=== PATIENT | female | born 1955 | race Caucasian/White ===

== ENCOUNTER 2020-07-09 08:02 | Outpatient (REF) | payer MEDICARE, MEDICAID, SELFPAY ==
--- NOTE | ~2020-07-09 | XR_ITS ---
EXAMINATION: XR PELVIS CLINICAL INFORMATION: Bilateral hip pain COMPARISON: 08/03/2016 TECHNIQUE: AP view of the pelvis. FINDINGS: Moderate to severe bilateral hip arthritis with joint space loss, prominent osteophytes, sclerosis. No fracture or dislocation. Pelvic bones appear intact. Surgical clips projected over the lower abdomen and pelvis. XR/XR pelvis 1-2V IMPRESSION: Moderate to severe bilateral hip joint arthritis.
--- NOTE | ~2020-07-09 | XR_ITS ---
EXAMINATION: BILATERAL KNEE X-RAY CLINICAL INFORMATION: Pain COMPARISON: Previous x-ray November 2016 TECHNIQUE: Standing AP view of both knees and lateral and sunrise view of the right knee FINDINGS: Right: Bone alignment is normal. No fracture or dislocation is seen. There is arthritis at the patellofemoral and femoral tibial joints with joint space narrowing and osteophyte formation. There is a small joint effusion. Standing AP view of the left knee demonstrates arthritis at the femoral tibial joints. XR/XR knee RT 2V IMPRESSION: Arthritis.
--- NOTE | ~2020-07-09 | XR_ITS ---
EXAMINATION: BILATERAL KNEE X-RAY CLINICAL INFORMATION: Pain COMPARISON: Previous x-ray November 2016 TECHNIQUE: Standing AP view of both knees and lateral and sunrise view of the right knee FINDINGS: Right: Bone alignment is normal. No fracture or dislocation is seen. There is arthritis at the patellofemoral and femoral tibial joints with joint space narrowing and osteophyte formation. There is a small joint effusion. Standing AP view of the left knee demonstrates arthritis at the femoral tibial joints. XR/XR knee standing BI IMPRESSION: Arthritis.
== END 2020-07-09 08:03 | disposition home or self-care (01) ==
LOC: HO.HOSX 08:02
PROVIDERS: Visit Provider Orthopaedic Surgery
DX: M89.49 Other hypertrophic osteoarthropathy, multiple sites (principal); M79.7 Fibromyalgia; E66.9 Obesity, unspecified; Z68.31 Body mass index [BMI] 31.0-31.9, adult
CPT/HCPCS: 20610; 72170; 73560; 73565; 99202; J1100

== ENCOUNTER 2022-08-16 12:57 | Emergency (ER) | payer MEDICARE, MEDICAID, SELFPAY ==
--- NOTE | ~2022-08-16 | XR_ITS ---
EXAMINATION: XR CHEST CLINICAL INFORMATION: Shortness of breath. COMPARISON: None available. TECHNIQUE: Frontal view of the chest was obtained. FINDINGS: The lungs are clear. The heart and mediastinal structures are unremarkable as a moderate-sized hiatal hernia. XR/XR chest 1V IMPRESSION: 1. No acute cardiopulmonary process. 2. Moderate hiatal hernia.
--- NOTE | ~2022-08-16 | CT_ITS ---
EXAMINATION: CT ANGIOGRAM OF THE CHEST WITH AND WITHOUT CONTRAST (CT PULMONARY ANGIOGRAM FOR PE) CLINICAL INFORMATION: Reason for Exam tachycardic, sob, hx breast ca, current melanoma COMPARISON: Chest x-ray from today TECHNIQUE: Prior to contrast administration, noncontrast localization images were obtained. Subsequently, multidetector volumetric imaging was performed from the thoracic inlet to below the diaphragms following the administration of 65 mL Omnipaque 350 intravenous contrast. No contrast reaction reported Sagittal, coronal, and MIP oblique sagittal reformatted images were obtained on the CT workstation, uploaded to PACS, and reviewed. This CT examination was performed using dose optimization techniques as appropriate, variously including the following: *Automated exposure control *Adjustment of mA and/or kV according to patient size (this includes techniques or standardized protocols for targeted exams where dose is matched to indication/reason for exam; i.e. extremities or head) *Use of iterative reconstruction technique Total exam dose-length product 332 mGy-cm FINDINGS: QUALITY OF STUDY/CONTRAST BOLUS: Satisfactory. PULMONARY ARTERIES: No pulmonary emboli. THORACIC AORTA: No aneurysm. LUNG: No regions of consolidation bilaterally. PLEURA: No pleural effusion or pneumothorax. MEDIASTINUM: The visualized thyroid gland is unremarkable. Moderate-sized hiatal hernia. No lymphadenopathy is seen. Cardiac size is within normal limits; no pericardial effusion. CORONARY ARTERY CALCIFICATION: None visualized on this study. CHEST WALL/AXILLA: No axillary or internal mammary lymphadenopathy. OSSEOUS STRUCTURES: Degenerative changes are noted in the spine. UPPER ABDOMEN: Cholelithiasis is noted. No reflux of contrast into the hepatic veins to suggest elevated right heart pressures. CT/CT angio chest PE protocol IMPRESSION: 1. No pulmonary embolus identified. 2. Moderate-sized hiatal hernia. 3. Cholelithiasis. VTE: negative.
--- NOTE | 2022-08-16 13:04 | ECG_ITS ---
Test Reason : HEART PALPITATIONS Blood Pressure : / mmHG Vent. Rate : 129 BPM Atrial Rate : 129 BPM P-R Int : 156 ms QRS Dur : 086 ms QT Int : 308 ms P-R-T Axes : 041 014 037 degrees QTc Int : 451 ms Sinus tachycardia Septal infarct , age undetermined Abnormal ECG When compared with ECG of 26-OCT-2004 16:01, Vent. rate has increased BY 69 BPM Nonspecific T wave abnormality now evident in Inferior leads Referred By: Janell Lovelace Electronically Signed By:David Linares
[2022-08-16 13:05] VITALS: BP 148/91; PULSE 134; RESP 24; TEMP 37; O2SAT 98; BMI 30.5
--- NOTE | 2022-08-16 13:05 | ED_ITS ---
HPI - Arrhythmia/Palpitations General Chief Complaint: Arrhythmia/Palpitations Stated Complaint: Heart palpitations Time Seen by Provider: 08/16/22 16:03 Source: patient Mode of arrival: ambulatory Limitations: no limitations History of Present Illness HPI narrative: patient comes to the emergency room complaining of palpitations. patient denies chest pain, no shortness of breath. Patient states that she does have history of anxiety. Patient states that earlier today she was in shopping mall, started experiencing palpitations, feeling a bit shaky, patient started feeling very anxious and then the palpitations got worse. at this moment, patient states that she still feels a bit tachycardic but overall feeling much better. Related Data Home Medications Medication Instructions Recorded Confirmed valacyclovir 1 gram tablet 1,000 mg PO DAILY 01/23/20 09/23/21 (Valtrex) Previous Rx's Medication Instructions Recorded atorvastatin 20 mg tablet 20 mg PO DAILY #90 tabs 01/04/22 hydralazine 50 mg tablet 50 mg PO TID #270 tabs 01/04/22 metoprolol succinate 50 mg 50 mg PO DAILY #90 tabs 01/04/22 tablet,extended release 24 hr hydrochlorothiazide 25 mg tablet 25 mg PO QAM PRN bloating #90 tabs 01/12/22 loratadine 10 mg tablet 10 mg PO DAILY #90 tabs 04/13/22 diclofenac sodium 1 % topical gel 4 g topical QID #3 grams 05/11/22 (Arthritis Pain (diclofenac)) alprazolam 0.5 mg tablet 0.5 mg PO TID 90 days #270 tabs 07/11/22 tramadol 50 mg tablet 50 mg PO DAILY PRN pain 90 days 07/11/22 #90 tabs Allergies Allergy/AdvReac Type Severity Reaction Status Date / Time tetanus toxoid, adsorbed Allergy Intermediate FLU LIKE Verified 08/16/22 13:12 [Tetanus Toxoid,Adsorbed] SYMPTOMS Tetanus Allergy Unknown cold Verified 08/16/22 13:12 duloxetine [Cymbalta] AdvReac Unknown not sure Verified 08/16/22 13:12 Review of Systems Review of Systems: Constitutional : No Weight loss, No Fever, No Chills, No Night Sweats, No Fatigue, No Malaise ENT/Mouth : No Hearing loss, No Ear Pain, No Nasal Congestion, No Sinus Pain, No Hoarseness, No sore throat, No Rhinorrhea, No Swallowing Difficulty Eyes: No Eye Pain, No Swelling, No Redness, No Foreign Body, No Discharge, No Vision Changes Cardiovascular : No Chest Pain, No SOB, No Dyspnea on Exertion, No Orthopnea, No Edema, complaining of palpitations Respiratory : No Cough, No Sputum, No Wheezing, No Smoke Exposure, No Dyspnea Gastrointestinal : No Nausea, No Vomiting, No Diarrhea, No Constipation, No abdominal Pain, No Hematochezia, No Melena Genitourinary : no irregular bleeding, No Dysuria, No Urinary Frequency, No Hematuria, No Urinary Incontinence, No Urgency, No Flank Pain, No Urinary Flow Changes, No Hesitancy Musculoskeletal : No joint pain, No Myalgias, No Joint Swelling Skin : No Skin Lesions, No rash Neuro : No Weakness, No Numbness, No Paresthesias, No Loss of Consciousness, No Dizziness, No Headache Psych : No Anxiety/Panic, No Depression, No SI/HI/AH/VH, No Social Issues, Heme/Lymph: No Bruising, No Bleeding,No Lymphadenopathy Endocrine : No Polyuria, No Polydipsia, No Temperature Intolerance [facility] Past Medical History Medical History Colonoscopy refused Fibromyalgia History of breast cancer Hypercholesterolemia Hypertension Obesity (BMI 30-39.9) Osteoarthritis Raynauds disease Rosacea Varicose veins of anus or rectum Surgical History History of cone biopsy of uterine cervix History of mastectomy History of tubal ligation Hx of breast augmentation Family History Family History Father Angina pectoris Past heart attack Mother Diabetes Stroke CVD (cardiovascular disease) Social History Social History (Updated 07/21/20 @ 11:42 by Disha Edwards [facility]) Housing: Apartment Alcohol intake: current Alcohol intake frequency: holidays/special occasions only Patient Tobacco Use Status: Never used Tobacco e-Cigarette/Vaping Use: Never Used Second Hand Smoke Exposure: No Advance Directives: No Advance Directives Information Provided: Yes service: No Current occupational status: disabled Cognitive needs: No Hearing needs: No Vision needs: Yes Physical Exam Vital Signs: Vital Signs: Last Vital Signs Temp 97.5 F 08/16/22 16:04 Pulse 84 08/16/22 20:18 Resp 18 08/16/22 20:18 BP 153/87 H 08/16/22 18:24 Pulse Ox 98 08/16/22 18:24 O2 Del Method Room Air 08/16/22 18:24 BMI result Body Mass Index 30.5 Const: Other: Appearance: Alert. Oriented X3. No acute distress. Eyes: Pupils equal, round and reactive to light. ENT: Pharynx normal. Neck: Normal inspection. Neck supple. No lymph nodes noted. No crepitus CVS: cardiac in the 110s with regular rhythm, Pulses normal. Normal S1 and S2 Respiratory: No respiratory distress. Breath sounds normal. No Wheezing. No rales Abdomen: Soft and nontender. No rigidity. No distention. Skin: Skin warm and dry. Normal skin color. Normal skin turgor. Extremities: No lower extremity edema. No Lacerations. No Rash Neuro: Oriented X 3. No motor deficit. No sensory deficit. Moving all extremities. No slurred speech. CN 2 through 12 grossly intact Psych: calm, cooperative, a bit anxious Course Course Course Narrative: RME - 66 yo female with history of anxiety, HLD, osteoarthritis, HTN who presents to the ER for evaluation of palpitations that started a couple hours ago after walking into a store. She reports it feels like her heart is racing and she feels lightheaded and shakey. +daily ETOH, had 3 beers yesterday. Denies history of withdrawal. HR 120-130 in triage. Plan: EKG, lab workup. to go to treatment room Medications Administered Discontinued Medications Generic Name Dose Route Start Last Admin Trade Name Derrick PRN Reason Stop Dose Admin Iohexol 100 ml 08/16/22 18:09 08/16/22 18:09 Iohexol 350 Mg/Ml 100 Ml Infus..Btl IV 08/16/22 18:10 65 ml ONCE ONE Administration Medical Decision Making Medical Decision Making [facility] Narrative: - I discussed the lab findings with the patient, no acute findings. - Patient has history of breast cancer and skin cancer, we did a CT scan to rule out pulmonary embolism, which was negative. - CT scan for pulmonary embolism is negative for PE. - Patient's heart rate back to normal. Patient instructed to follow-up with her primary care physician as she may need a Holter monitor evaluation Differential Diagnosis Differential Diagnoses: The differential diagnosis associated with the presentation includes ( sinus tachycardia, anxiety, PE) Lab Data MDM Lab Attestation statement: I reviewed the patient's lab results. 08/16/22 13:19 08/16/22 13:19 Labs: Lab Results 08/16/22 08/16/22 08/16/22 Range/Units 13:19 13:19 13:19 WBC 7.3 (4.8-10.8) X10*3/uL RBC 4.59 (4.20-5.50) X10*6/uL Hgb 15.5 (12.0-16.0) g/dl Hct 45.5 (37.0-47.0) % MCV 99.1 H (80.0-98.0) fL MCH 33.8 H (27.0-33.0) pg MCHC 34.1 (31.0-35.0) g/dl RDW 12.6 (11.0-16.0) % Plt Count 227 (160-400) X10*3/uL MPV 9.3 L (9.4-12.3) fL Immature Gran % (Auto) 0.6 H (0.0-0.4) % Neut % (Auto) 57.2 (45-73) % Lymph % (Auto) 33.5 (20-40) % Payette % (Auto) 5.8 (2-11) % Eos % (Auto) 2.1 (0-4) % Baso % (Auto) 0.8 (0-2) % Lymph # (Auto) 2.4 (1.2-4.9) X10*3/uL Payette # (Auto) 0.4 (0.1-1.2) X10*3/uL Eos # (Auto) 0.2 (0.0-0.4) X10*3/uL Baso # (Auto) 0.1 (0.0-0.2) X10*3/uL Abs Immat Gran (auto) 0.04 H (0.00-0.03) X10*3/uL Absolute Neuts (auto) 4.2 (2.0-8.3) x10*3/uL Absolute Nucleated RBC 0.000 (0.0-0.012) X10*3/uL Nucleated RBC % (auto) 0.0 (0.0-0.2) /100WBC PT (10.0-13.1) SEC INR (0.9-1.1) APTT (26.0-36.4) SEC D-Dimer High Sensitivty NG/ML Sodium 141 (135-145) mmol/L Potassium 3.7 (3.3-5.1) mmol/L Chloride 107 (96-108) mmol/L Carbon Dioxide 21 L (22-29) mmol/L Anion Gap 17 (12-20) BUN 9 (9-16) mg/dL Creatinine 0.83 (0.5-1.4) mg/dL Estim Creat Clear Calc 71.5 Estimated GFR > 60 Random Glucose 139 H (60-115) mg/dL Calcium 9.2 (8.4-10.2) mg/dL Magnesium 1.8 (1.6-2.6) mg/dL Total Bilirubin 0.6 (0.0-1.0) mg/dL Direct Bilirubin 0.2 (0.0-0.5) mg/dL AST 26 (5-31) U/L ALT 27 (0-31) U/L Alkaline Phosphatase 116 (39-117) U/L Troponin I High Sens 3.6 (<3.5-17.0) ng/L B-Natriuretic Peptide (<100) pg/mL Total Protein 7.3 (6.5-8.0) g/dL Albumin 4.4 (3.5-5.0) g/dL Urine Color Urine Appearance Urine pH (5.0-9.0) Ur Specific Hammond (1.005-1.025) Urine Protein (Neg-Trace) mg/dL Urine Glucose (UA) (Negative) mg/dL Urine Ketones (Negative) mg/dL Urine Blood (Negative) Urine Nitrite (Negative) Ur Leukocyte Esterase (Negative) Urine Opiates Screen (Not Detect) Urine Fentanyl Screen (Not Detect) Ur Barbiturates Screen (Not Detect) Ur Phencyclidine Scrn (Not Detect) Ur Amphetamines Screen (Not Detect) U Benzodiazepines Scrn (Not Detect) Urine Cocaine Screen (Not Detect) U Marijuana (THC) Screen (Not Detect) 08/16/22 08/16/22 08/16/22 Range/Units 13:19 17:46 17:46 WBC (4.8-10.8) X10*3/uL RBC (4.20-5.50) X10*6/uL Hgb (12.0-16.0) g/dl Hct (37.0-47.0) % MCV (80.0-98.0) fL MCH (27.0-33.0) pg MCHC (31.0-35.0) g/dl RDW (11.0-16.0) % Plt Count (160-400) X10*3/uL MPV (9.4-12.3) fL Immature Gran % (Auto) (0.0-0.4) % Neut % (Auto) (45-73) % Lymph % (Auto) (20-40) % Payette % (Auto) (2-11) % Eos % (Auto) (0-4) % Baso % (Auto) (0-2) % Lymph # (Auto) (1.2-4.9) X10*3/uL Payette # (Auto) (0.1-1.2) X10*3/uL Eos # (Auto) (0.0-0.4) X10*3/uL Baso # (Auto) (0.0-0.2) X10*3/uL Abs Immat Gran (auto) (0.00-0.03) X10*3/uL Absolute Neuts (auto) (2.0-8.3) x10*3/uL Absolute Nucleated RBC (0.0-0.012) X10*3/uL Nucleated RBC % (auto) (0.0-0.2) /100WBC PT 9.0 L (10.0-13.1) SEC INR 0.8 L (0.9-1.1) APTT 27.8 (26.0-36.4) SEC D-Dimer High Sensitivty 151 NG/ML Sodium (135-145) mmol/L Potassium (3.3-5.1) mmol/L Chloride (96-108) mmol/L Carbon Dioxide (22-29) mmol/L Anion Gap (12-20) BUN (9-16) mg/dL Creatinine (0.5-1.4) mg/dL Estim Creat Clear Calc Estimated GFR Random Glucose (60-115) mg/dL Calcium (8.4-10.2) mg/dL Magnesium (1.6-2.6) mg/dL Total Bilirubin (0.0-1.0) mg/dL Direct Bilirubin (0.0-0.5) mg/dL AST (5-31) U/L ALT (0-31) U/L Alkaline Phosphatase (39-117) U/L Troponin I High Sens (<3.5-17.0) ng/L B-Natriuretic Peptide 39 (<100) pg/mL Total Protein (6.5-8.0) g/dL Albumin (3.5-5.0) g/dL Urine Color Urine Appearance Urine pH (5.0-9.0) Ur Specific Hammond (1.005-1.025) Urine Protein (Neg-Trace) mg/dL Urine Glucose (UA) (Negative) mg/dL Urine Ketones (Negative) mg/dL Urine Blood (Negative) Urine Nitrite (Negative) Ur Leukocyte Esterase (Negative) Urine Opiates Screen (Not Detect) Urine Fentanyl Screen (Not Detect) Ur Barbiturates Screen (Not Detect) Ur Phencyclidine Scrn (Not Detect) Ur Amphetamines Screen (Not Detect) U Benzodiazepines Scrn (Not Detect) Urine Cocaine Screen (Not Detect) U Marijuana (THC) Screen (Not Detect) 08/16/22 08/16/22 Range/Units 19:09 19:09 WBC (4.8-10.8) X10*3/uL RBC (4.20-5.50) X10*6/uL Hgb (12.0-16.0) g/dl Hct (37.0-47.0) % MCV (80.0-98.0) fL MCH (27.0-33.0) pg MCHC (31.0-35.0) g/dl RDW (11.0-16.0) % Plt Count (160-400) X10*3/uL MPV (9.4-12.3) fL Immature Gran % (Auto) (0.0-0.4) % Neut % (Auto) (45-73) % Lymph % (Auto) (20-40) % Payette % (Auto) (2-11) % Eos % (Auto) (0-4) % Baso % (Auto) (0-2) % Lymph # (Auto) (1.2-4.9) X10*3/uL Payette # (Auto) (0.1-1.2) X10*3/uL Eos # (Auto) (0.0-0.4) X10*3/uL Baso # (Auto) (0.0-0.2) X10*3/uL Abs Immat Gran (auto) (0.00-0.03) X10*3/uL Absolute Neuts (auto) (2.0-8.3) x10*3/uL Absolute Nucleated RBC (0.0-0.012) X10*3/uL Nucleated RBC % (auto) (0.0-0.2) /100WBC PT (10.0-13.1) SEC INR (0.9-1.1) APTT (26.0-36.4) SEC D-Dimer High Sensitivty NG/ML Sodium (135-145) mmol/L Potassium (3.3-5.1) mmol/L Chloride (96-108) mmol/L Carbon Dioxide (22-29) mmol/L Anion Gap (12-20) BUN (9-16) mg/dL Creatinine (0.5-1.4) mg/dL Estim Creat Clear Calc Estimated GFR Random Glucose (60-115) mg/dL Calcium (8.4-10.2) mg/dL Magnesium (1.6-2.6) mg/dL Total Bilirubin (0.0-1.0) mg/dL Direct Bilirubin (0.0-0.5) mg/dL AST (5-31) U/L ALT (0-31) U/L Alkaline Phosphatase (39-117) U/L Troponin I High Sens (<3.5-17.0) ng/L B-Natriuretic Peptide (<100) pg/mL Total Protein (6.5-8.0) g/dL Albumin (3.5-5.0) g/dL Urine Color Yellow Urine Appearance Clear Urine pH 5.0 (5.0-9.0) Ur Specific Hammond 1.025 (1.005-1.025) Urine Protein Negative (Neg-Trace) mg/dL Urine Glucose (UA) Negative (Negative) mg/dL Urine Ketones Negative (Negative) mg/dL Urine Blood Negative (Negative) Urine Nitrite Negative (Negative) Ur Leukocyte Esterase Negative (Negative) Urine Opiates Screen Not Detected (Not Detect) Urine Fentanyl Screen Not Detected (Not Detect) Ur Barbiturates Screen Not Detected (Not Detect) Ur Phencyclidine Scrn Not Detected (Not Detect) Ur Amphetamines Screen Not Detected (Not Detect) U Benzodiazepines Scrn Not Detected (Not Detect) Urine Cocaine Screen Not Detected (Not Detect) U Marijuana (THC) Screen Not Detected (Not Detect) Radiology Impression Discussion of test interpretation with radiology: I have reviewed the radiologist's reading. Radiologist Impression: FINDINGS: QUALITY OF STUDY/CONTRAST BOLUS: Satisfactory. PULMONARY ARTERIES: No pulmonary emboli.? THORACIC AORTA: No aneurysm. LUNG: No regions of consolidation bilaterally. PLEURA: No pleural effusion or pneumothorax. MEDIASTINUM: The visualized thyroid gland is unremarkable. Moderate-sized hiatal hernia. No lymphadenopathy is seen. Cardiac size is within normal limits; no pericardial effusion. CORONARY ARTERY CALCIFICATION: None visualized on this study. CHEST WALL/AXILLA: No axillary or internal mammary lymphadenopathy. OSSEOUS STRUCTURES: Degenerative changes are noted in the spine.? UPPER ABDOMEN: Cholelithiasis is noted. No reflux of contrast into the hepatic veins to suggest elevated right heart pressures. CT/CT angio chest PE protocol IMPRESSION: 1.? No pulmonary embolus identified. 2.? Moderate-sized hiatal hernia. 3.? Cholelithiasis. ? VTE: negative. ? Discharge Plan Discharge Clinical Impression: Palpitations Patient Disposition: Home, Self-Care Instructions: Heart Palpitations (ED) Additional Instructions: Please follow-up with your primary care physician tomorrow. If you have any worsening or new symptoms, please return to the emergency room or call 911 Prescriptions: No Action atorvastatin 20 mg tablet 20 mg PO DAILY Qty: 90 3RF hydralazine 50 mg tablet 50 mg PO TID Qty: 270 2RF metoprolol succinate 50 mg tablet extended release 24 hr 50 mg PO DAILY Qty: 90 3RF diclofenac sodium [Arthritis Pain (diclofenac)] 1 % gel 4 g topical QID Qty: 3 2RF Rx Instructions: apply to single knee, ankle, foot; for foot includes sole/toes/top of foot alprazolam 0.5 mg tablet 0.5 mg PO TID 90 Days Qty: 270 1RF tramadol 50 mg tablet 50 mg PO DAILY PRN (Reason: pain) 90 Days Qty: 90 2RF valacyclovir [Valtrex] 1 gram tablet 1,000 mg PO DAILY hydrochlorothiazide 25 mg tablet 25 mg PO QAM PRN (Reason: bloating) Qty: 90 3RF loratadine 10 mg tablet 10 mg PO DAILY Qty: 90 3RF
[2022-08-16 13:25] LABS: MANUAL DIFF FLAG NO
[2022-08-16 13:27] LABS: Basophils Absolute Auto 0.1 X10*3/uL (0.0-0.2); Basophils Percent Auto 0.8 % (0-2); Eosinophils Absolute Auto 0.2 X10*3/uL (0.0-0.4); Eosinophils Percent Auto 2.1 % (0-4); Hematocrit 45.5 % (37.0-47.0); Hemoglobin 15.5 g/dl (12.0-16.0); Imm Gran Abs Auto 0.04 X10*3/uL (0.00-0.03); Imm Gran Pct Auto 0.6 % (0.0-0.4); Lymphocytes Absolute Auto 2.4 X10*3/uL (1.2-4.9); Lymphocytes Percent Auto 33.5 % (20-40); Mean Corpuscular HGB Conc 34.1 g/dl (31.0-35.0); Mean Corpuscular Hemoglobin 33.8 pg (27.0-33.0); Mean Corpuscular Volume 99.1 fL (80.0-98.0); Mean Platelet Volume 9.3 fL (9.4-12.3); Monocytes Absolute Auto 0.4 X10*3/uL (0.1-1.2); Monocytes Percent Auto 5.8 % (2-11); Neutrophils Absolute Auto 4.2 x10*3/uL (2.0-8.3); Neutrophils Percent Auto 57.2 % (45-73); Platelet Count 227 X10*3/uL (160-400); Red Blood Count 4.59 X10*6/uL (4.20-5.50); Red Cell Distribution Width 12.6 % (11.0-16.0); White Blood Count 7.3 X10*3/uL (4.8-10.8)
[2022-08-16 13:41] LABS: Alanine Aminotransferase 27 U/L (0-31); Albumin Level 4.4 g/dL (3.5-5.0); Alkaline Phosphatase 116 U/L (39-117); Anion Gap 17 (12-20); Aspartate Amino Transferase 26 U/L (5-31); Bilirubin Direct 0.2 mg/dL (0.0-0.5); Bilirubin Total 0.6 mg/dL (0.0-1.0); Blood Urea Nitrogen 9 mg/dL (9-16); Calcium 9.2 mg/dL (8.4-10.2); Carbon Dioxide 21 mmol/L (22-29); Chloride 107 mmol/L (96-108); Creatinine Clr Calc Pharmacy 71.5; Estimated Glomerular Filt Rate > 60; Glucose Random 139 mg/dL (60-115); Magnesium 1.8 mg/dL (1.6-2.6); Potassium 3.7 mmol/L (3.3-5.1); Sodium 141 mmol/L (135-145); Total Protein 7.3 g/dL (6.5-8.0)
[2022-08-16 13:46] LABS: B Type Natriuretic Peptide 39 pg/mL (<100)
[2022-08-16 13:47] LABS: Troponin-I High Sensitivity 3.6 ng/L (<3.5-17.0)
[2022-08-16 16:04] VITALS: BP 156/83; PULSE 115; RESP 18; TEMP 36.4; O2SAT 98
[2022-08-16 18:04] LABS: INTERNATIONAL NORM RATIO 0.8 (0.9-1.1)
[2022-08-16 18:07] LABS: D Dimer High Sensitivity 151 NG/ML; Partial Thromboplastin Time 27.8 SEC (26.0-36.4)
[2022-08-16] MEDS: iohexoL 350 MG/ML 100 ML INFUS..BTL IV (18:09)
[2022-08-16 18:24] VITALS: BP 153/87; PULSE 81; RESP 20; O2SAT 98
[2022-08-16 19:17] LABS: Appearance Urine Clear; Color Urine Yellow; Glucose Urine UA Negative (Negative); Leukocyte Esterase Urine Negative (Negative); Nitrite Urine Negative (Negative); Specific Gravity - Urine 1.025 (1.005-1.025); Urine Blood Negative (Negative); Urine Ketones Negative (Negative); Urine Protein Negative (Neg-Trace)
[2022-08-16 19:25] LABS: Amphetamine Screen Urine Not Detected (Not Detect); Barbiturates, Urine Not Detected (Not Detect); Benzodiazepines Screen Urine Not Detected (Not Detect); Cannabinoid Screen Urine Not Detected (Not Detect); Cocaine Screen Urine Not Detected (Not Detect); Fentanyl, urine Not Detected (Not Detect); Opiate Screen Urine Not Detected (Not Detect); Phencyclidine Screen Urine Not Detected (Not Detect)
[2022-08-16 20:18] VITALS: PULSE 84; RESP 18
== END 2022-08-16 21:18 | disposition home or self-care (01) ==
PROVIDERS: Physician Assistant; Emergency Provider Emergency Medicine; PCP Internal Medicine
DX: R00.2 Palpitations (principal); I10 Essential (primary) hypertension; E78.00 Pure hypercholesterolemia, unspecified; F41.9 Anxiety disorder, unspecified; K44.9 Diaphragmatic hernia without obstruction or gangrene; I73.00 Raynaud's syndrome without gangrene; Z85.3 Personal history of malignant neoplasm of breast; Z79.02 Long term (current) use of antithrombotics/antiplatelets; Z79.899 Other long term (current) drug therapy
CPT/HCPCS: 36415; 71045; 71275; 80048; 80076; 80307; 81003; 83735; 83880; 84484; 85025; 85379; 85610; 85730; 93005; 99284; Q9967

== ENCOUNTER 2022-10-20 04:44 | Emergency (ER) | payer MEDICARE, MEDICAID, SELFPAY ==
[2022-10-20 04:58] VITALS: BP 189/80; PULSE 48; RESP 19; TEMP 36.6; O2SAT 99; BMI 30.5
[2022-10-20 05:05] VITALS: BP 189/80; PULSE 48; RESP 19; TEMP 36.6; O2SAT 99
--- NOTE | 2022-10-20 05:06 | PC.NURSE ---
Pt ca&ox4, no signs of distress. Pt denies sob or chest pain. Pts son at bedside. plan of care ongoing.
--- NOTE | 2022-10-20 05:54 | ED.ALLEREA ---
HPI - Allergic Reaction General Chief complaint: Allergic Reaction Stated complaint: possible bee sting/allergic reaction Time Seen by Provider: 10/20/22 05:35 Source: patient and family (Son) Mode of arrival: ambulatory Limitations: no limitations History of Present Illness HPI narrative: 66-year-old female who presents emergency department for evaluation of bee sting to left ring finger with redness and swelling to her hand. Patient states yesterday around 15:00 hours she was stung by an insect underneath the ring of her left ring finger. She states that the pain was immediate and she had swelling of her knuckle (PIP joint). She states she was taking Advil dual action and Benadryl. She states she woke up this morning and had severe pain and her hand with increased redness. She was also not feeling well. She states she was feeling weak and fatigued. She denied fever or chills. She was concerned that she was having severe allergic reactions so she came to the emergency department for evaluation. 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 She also states that her left forearm got scratched by her cat yesterday when she was trying to get the CT of back. Related Data Home Medications Medication Instructions Recorded Confirmed valacyclovir 1 gram tablet 1,000 mg PO DAILY 01/23/20 09/23/21 (Valtrex) Previous Rx's Medication Instructions Recorded atorvastatin 20 mg tablet 20 mg PO DAILY #90 tabs 01/04/22 metoprolol succinate 50 mg 50 mg PO DAILY #90 tabs 01/04/22 tablet,extended release 24 hr hydrochlorothiazide 25 mg tablet 25 mg PO QAM PRN bloating #90 tabs 01/12/22 diclofenac sodium 1 % topical gel 4 g topical QID #3 grams 05/11/22 (Arthritis Pain (diclofenac)) alprazolam 0.5 mg tablet 0.5 mg PO TID 90 days #270 tabs 07/11/22 tramadol 50 mg tablet 50 mg PO DAILY PRN pain 90 days 07/11/22 #90 tabs hydralazine 50 mg tablet 50 mg PO TID #270 tabs 09/30/22 loratadine 10 mg tablet 10 mg PO DAILY #90 tabs 10/11/22 cephalexin 500 mg capsule 500 mg PO TID 7 days #21 caps 10/20/22 prednisone 20 mg tablet 60 mg PO DAILY 5 days #15 tabs 10/20/22 Allergies Allergy/AdvReac Type Severity Reaction Status Date / Time tetanus toxoid, adsorbed Allergy Intermediate FLU LIKE Verified 08/16/22 13:12 [Tetanus Toxoid,Adsorbed] SYMPTOMS Tetanus Allergy Unknown cold Verified 08/16/22 13:12 duloxetine [Cymbalta] AdvReac Unknown not sure Verified 08/16/22 13:12 Review of Systems Review of Systems: Yes all other systems are reviewed and are negative [facility] Past Medical History [facility] Narrative: Social history: She denies tobacco use. She occasionally drinks alcohol. She denies drug use. Medical History Colonoscopy refused Fibromyalgia History of breast cancer Hypercholesterolemia Hypertension Obesity (BMI 30-39.9) Osteoarthritis Raynauds disease Rosacea Varicose veins of anus or rectum Surgical History History of cone biopsy of uterine cervix History of mastectomy History of tubal ligation Hx of breast augmentation Family History Family History Father Angina pectoris Past heart attack Mother Diabetes Stroke CVD (cardiovascular disease) Social History Social History Housing: Apartment Alcohol intake: current Alcohol intake frequency: holidays/special occasions only Patient Tobacco Use Status: Never used Tobacco Smoked in Last 30 Days: No e-Cigarette/Vaping Use: Never Used Second Hand Smoke Exposure: No Advance Directives: No Advance Directives Information Provided: Yes service: No Current occupational status: disabled Cognitive needs: No Hearing needs: No Vision needs: Yes Physical Exam ED Vital Signs: Vital Signs - 24 hr 10/20/22 04:58 10/20/22 05:05 Temperature 97.8 F 97.8 F Pulse Rate 48 L 48 L Respiratory Rate 19 19 Blood Pressure 189/80 H 189/80 H Pulse Oximetry 99 99 Oxygen Delivery Method Room Air Room Air BMI result Body Mass Index 30.5 Vital signs revealed an elevated blood pressure-most likely caused by pain and her essential hypertension, patient also has a low heart rate of 48 Exam: General: Awake, alert in no distress Extremities: The patient has a small puncture wound to the radial aspect of her proximal phalanx of the left ring finger. The PIP joint is swollen, the patient has erythema of the left hand involving the 2nd 3rd and 4th metacarpal area. The erythema is warm to the touch. There is no lymphangitis noted. Medical Decision Making Medical Decision Making MDM Narrative: 66-year-old female who presents emergency department for evaluation of an insect bite to the left ring finger that occurred at 15:00 hours with initial swelling of the PIP joint. Patient woke up this morning with increased pain, erythema to 3rd 4th and 5th metacarpal area with systemic symptoms of feeling fatigued, nausea and weakness. Patient did take Advil dual action and Benadryl prior to coming to emergency department. Patient's vital signs did reveal an elevated blood pressure and low heart rate. The patient's at does have swelling and erythema to her left hand and ring finger. I am concerned the patient may have cellulitis verses a localized reaction to the insect venom. The patient will be treated with Keflex 500 mg 3 times a day for 5 days, Benadryl 25 mg 4 times a day for 3 days and prednisone 60 mg once a day for 5 days. Patient was given printed and verbal instructions and discharged home. Differential Diagnosis Differential Diagnoses: The differential diagnosis associated with the presentation includes Differential diagnosis includes but is not limited to cellulitis, localized reaction to insect venom, anaphylaxis Independent Historian Clinical information obtained from an independent historian. History obtained from or confirmed by: Other (Son) Prescription Management I considered prescription management with: Antibiotic and Other (Prednisone) Chronic Conditions Patient?s care impacted by: Hypertension Discharge Plan Discharge Clinical Impression: Cellulitis of hand, left Insect bite Qualifiers: Encounter type: initial encounter Site of insect bite: finger Patient Disposition: Home, Self-Care Instructions: Cellulitis (ED) Additional Instructions: You either have an infection of your left hand or you have a local reaction to insect venom. I am going to treat you for both of these possibilities. Take Keflex 500 mg pills, 1 pill 3 times a day for 1 week. This is an antibiotic that should help your body fight off the infection. Keep the area of hand elevated to help reduce swelling in the infected area and this helps with the healing process Take prednisone 20 mg pills, 3 pills once a day for 5 days. While you are taking prednisone, do not take any NSAIDs (Motrin, Advil, ibuprofen, Aleve, naproxen). This is an anti-inflammatory medications that should reduce the pain and swelling in your hand from reaction to insect venom Take Benadryl 25 mg 4 times a day for the next 3 days to help reduce the swelling and itchiness in hand. Also take Tylenol( acetaminophen) 325 mg pills, 2 pills every 4 hours as needed for pain or fever. Sign of worsening infection include fever, chills, weakness, increased pain, increased redness, increased swelling or red streaks going away from the area of infection. If you develop any of these symptoms or any other symptoms that are concerning to you, see your doctor immediately or return to the Emergency Department. Follow up with your doctor in 3 days for a recheck Please read the other printed instructions that we printed for you. Please read the other printed instructions. Prescriptions: New cephalexin 500 mg capsule 500 mg PO TID 7 Days Qty: 21 0RF prednisone 20 mg tablet 60 mg PO DAILY 5 Days Qty: 15 0RF No Action atorvastatin 20 mg tablet 20 mg PO DAILY Qty: 90 3RF metoprolol succinate 50 mg tablet extended release 24 hr 50 mg PO DAILY Qty: 90 3RF diclofenac sodium [Arthritis Pain (diclofenac)] 1 % gel 4 g topical QID Qty: 3 2RF Rx Instructions: apply to single knee, ankle, foot; for foot includes sole/toes/top of foot alprazolam 0.5 mg tablet 0.5 mg PO TID 90 Days Qty: 270 1RF tramadol 50 mg tablet 50 mg PO DAILY PRN (Reason: pain) 90 Days Qty: 90 2RF hydralazine 50 mg tablet 50 mg PO TID Qty: 270 2RF loratadine 10 mg tablet 10 mg PO DAILY Qty: 90 3RF valacyclovir [Valtrex] 1 gram tablet 1,000 mg PO DAILY hydrochlorothiazide 25 mg tablet 25 mg PO QAM PRN (Reason: bloating) Qty: 90 3RF
[2022-10-20] MEDS: predniSONE 20 MG TABLET 60 MG PO (06:16)
[2022-10-20] MEDS: cephALEXin 500 MG CAPSULE PO (06:16)
--- NOTE | 2022-10-20 06:21 | PC.NURSE ---
Pt ca&ox4, no signs of distress. Pts son at bedside. Pt medicated per may. plan of care ongoing.
== END 2022-10-20 06:32 | disposition home or self-care (01) ==
PROVIDERS: Emergency Provider Emergency Medicine Emergency Medical Services
DX: L03.114 Cellulitis of left upper limb (principal); Z79.899 Other long term (current) drug therapy
CPT/HCPCS: 99283; 99284

== ENCOUNTER 2022-10-24 13:37 | Outpatient (AMB) | payer MEDICARE, MEDICAID, SELFPAY ==
[2022-10-24 13:48] VITALS: BP 150/88; PULSE 68; O2SAT 97; BMI 31.5
--- NOTE | 2022-10-24 13:48 | AM.OFFVISMDC ---
Intake Vital Signs 10/24/22 13:48 Height 5 ft 6 in Weight 195 lb BMI 31.5 BP 150/88 H Blood Pressure Location Lt brachial Position Sitting Pulse 68 Pulse Source Pulse Oximeter Temp Source Skin Pulse Oximetry (%) 97 Oxygen Delivery Method Room Air Intake Visit Reasons: AWV Intake Note: Patient is here for an Annual Wellness Visit. 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: No Allergies tetanus toxoid, adsorbed [Tetanus Toxoid,Adsorbed] Allergy (Intermediate, Verified 10/24/22 13:49) FLU LIKE SYMPTOMS Tetanus Allergy (Unknown, Verified 10/24/22 13:49) cold duloxetine [Cymbalta] Adverse Reaction (Unknown, Verified 10/24/22 13:49) not sure Medication List - Last Reconciled 10/24/22 by Dada Torres MD alprazolam 0.5 mg PO TID 90 days atorvastatin 20 mg PO DAILY cephalexin 500 mg PO TID 7 days diclofenac sodium 1% (Arthritis Pain (diclofenac)) 4 grams topical QID hydralazine 50 mg PO TID hydrochlorothiazide 25 mg PO QAM PRN loratadine 10 mg PO DAILY metoprolol succinate ER 50 mg PO DAILY prednisone 60 mg (3 x 20 mg) PO DAILY 5 days tramadol 50 mg PO DAILY PRN 90 days valacyclovir (Valtrex) 1,000 mg PO DAILY Fall Risk Assessment Fall risk assessment: No Falls in past year Date Fall Risk Assessed: 10/24/22 HPI AWV HPI Details 67-year-old obese female with hypercholesterolemia, hypertension generalized anxiety disorder osteoarthritis coming in for annual well visit last seen in April 2022. Patient has declined colonoscopy. And recommended mammogram. Patient had an insect bite on left hand and treated as cellulitis with antibiotics. Patient was in the emergency room also in August for palpitations a CT angio was done ruled out for pulmonary embolism but has moderate size hiatal hernia as well as cholelithiasis. at home getting good BP at home and discussed about this. R forehead cancer [facility] laser procedure 09/30/2022 [facility] Medical History Colonoscopy refused Fibromyalgia History of breast cancer Hypercholesterolemia Hypertension Obesity (BMI 30-39.9) Osteoarthritis Raynauds disease Rosacea Varicose veins of anus or rectum Surgical History History of cone biopsy of uterine cervix History of mastectomy History of tubal ligation Hx of breast augmentation Family History Father Angina pectoris Past heart attack Mother Diabetes Stroke CVD (cardiovascular disease) Social History (Updated 10/24/22 @ 14:17 by Dada Torres MD) Housing: Apartment Alcohol intake: current Alcohol intake frequency: holidays/special occasions only Patient Tobacco Use Status: Never used Tobacco e-Cigarette/Vaping Use: Never Used Second Hand Smoke Exposure: No service: No Current occupational status: disabled Cognitive needs: No Hearing needs: No Vision needs: Yes Questionnaire Medicare Wellness Checkup [age] What gender do you identify with?: female During the past 4 weeks, how much have you been bothered by emotional problems such as feeling anxious, depressed, irritable, sad or downhearted, and blue?: quite a bit During the past 4 weeks, has your physical & emotional health limited your social activities with family, friends, neighbors, or groups?: slightly During the past 4 weeks, how much bodily pain have you generally had?: severe pain During the past 4 weeks, was someone available to help you if you needed & wanted help?: yes, quite a bit During the past 4 weeks, what was the hardest physical activity you could do for at least 2 minutes?: light Can you get to places out of walking distance without help? (For eg., can you travel alone on buses, taxis or drive your car?): Yes Can you go shopping for groceries or clothes without someone's help?: Yes Can you prepare your own meals?: Yes Can you do your housework without help?: Yes Because of any health problems, do you need the help of another person with your personal care needs such as eating, bathing, dressing or getting around the house?: No Can you handle your own money without help?: Yes During the past 4 weeks, how would you rate your health in general?: fair During the past 4 weeks how have things been going for you?: good & bad parts about equal Are you having difficulties driving your car?: not applicable, I don't use a car Do you always fasten your seat belt when you are in a car?: yes, usually During past 4 weeks, have you been bothered by the following: never: Falling or dizzy when standing up, Sexual problems?, Trouble eating well? and Problems using the telephone?, sometimes: Teeth or denture problems? and often: Tiredness or fatigue? Have you fallen 2 or more times in the past year?: Yes Are you afraid of falling?: Yes Are you a smoker?: no During the past 4 weeks, how many drinks of wine, beer, or other alcoholic beverages did you have?: 2-5 drinks per week Do you exercise for about 20 minutes 3 or more times a week?: yes, most of the time Have you been given information to help with the following?: yes: Hazards in your house that might hurt you? and yes: Keeping track of your medications? How often do you have trouble taking medicines the way you have been told to take them?: I always take medicine as prescribed How confident are you that you can control & manage most of your health problems?: very confident What is your race?: White PHQ-9 Over the last 2 weeks, how often have you been bothered by any of the following problems? 1. Little interest or pleasure in doing things: not at all 2. Feeling down, depressed, or hopeless: not at all 3. Trouble falling or staying asleep, or sleeping too much: several days 4. Feeling tired or having little energy: several days 5. Poor appetite or overeating: not at all 6. Feeling bad about yourself - or that you are a failure or have let yourself or your family down: not at all 7. Trouble concentrating on things, such as reading the newspaper or watching television: not at all 8. Moving or speaking so slowly that other people could have noticed. Or the opposite - being so fidgety or restless that you have been moving around a lot more than usual: not at all 9. Thoughts that you would be better off or of hurting yourself in some way: not at all Total score: 2 Depression Screening Interpretation: Negative Source: Developed by Drs. Neil Banda, Gloria Yuen, Andrae Farfan and colleagues, with an educational dudley from [employer]. AMITA-7 AMB Questionnaire AMITA-7 Date AMITA - 7 assessed: 04/13/22 Feeling nervous, anxious, or on edge: 1 = Several days Not being able to stop or control worryin = Several days Worrying too much about different things: 1 = Several days Trouble relaxin = Several days Being so restless that it is hard to sit still: 1 = Several days Becoming easily annoyed or irritable: 1 = Several days Feeling afraid as if something awful might happen: 1 = Several days Total AMITA-7 score (0-4 normal; 5-9 mild; 10-14 moderate; 15-21 severe): 7 Source: Developed by Drs. Neil Banda, Gloria Yuen, Andrae Farfan and colleagues, with an educational dudley from [employer]. Thrive Questionnaire Date Thrive assessed: 04/13/22 Review of Systems Const Denies poor appetite and Denies weakness Eyes Denies no additional complaints ENT Reports Normal hearing present Card Denies chest pain, Denies syncope, Denies rapid heart rate and Denies dyspnea Resp Denies cough and Denies dyspnea GI Denies change in stool character, Reports constipation, Denies diarrhea, Denies nausea and Denies vomiting Denies urinary frequency, Denies difficulty voiding and Denies dysuria Neuro Reports Normal hearing present, Denies confusion, Denies syncope and Denies weakness Psych Denies confusion Physical Exam Vital Signs: Last Vital Signs Pulse 68 10/24/22 13:48 BP 150/88 H 10/24/22 13:48 Pulse Ox 97 10/24/22 13:48 Oxygen Delivery Method Room Air 10/24/22 13:48 BMI result Body Mass Index 31.5 Const General: alert and awake; No confusion Orientation/consciousness: No confusion HEENT Head: Yes normocephalic Ears: external ears normal and TM's normal bilaterally Face and sinus: Yes normal facial exam Mouth: moist mucous membranes Throat: Yes tonsils normal Eyes Conjunctivae: conjunctivae normal Pupils: Equal, round and reactive pupils present and Pupil accommodation reflex normal Direct Ophthalmoscopy: normal light reflex Neck Neck: No lymphadenopathy Thyroid: Thyroid normal Chest Chest palpation & inspection: normal inspection of the chest Resp Effort & Inspection: normal respiratory effort and no audible wheezes Auscultation: clear to auscultation bilaterally, no crackles, no wheezes and lung sounds not diminished Cardio Rate: regular rate Rhythm: regular rhythm Peripheral pulses: radial pulses present and dorsalis pedis present GI Palpation (GI): no masses Auscultation: normal bowel sounds and normoactive bowel sounds Rectal Exam - Female: deferred Skin General skin exam: no rashes or lesions noted Rashes: no rashes Neuro General: deep tendon reflexes 2+ bilaterally and No confusion Cranial nerves: Yes Equal, round and reactive pupils present, Yes Midline tongue present, Yes Normal hearing present and Yes Ability to bilaterally elevate shoulders present Cognition (Neuro): normal cognition Gait exam (Neuro): Normal gait present Motor exam (neuro): 5/5 motor strength present throughout Deep tendon reflexes (DTR's): Right brachioradialis reflex intensity grade: 2+, Left brachioradialis reflex intensity grade: 2+, Right patellar reflex intensity grade: 2+ and Left patellar reflex intensity grade: 2+ Extrem General: No edema Assessment & Plan Assessment & Plan (1) Medicare annual wellness visit, initial: Code(s): Z00.00 - Encounter for general adult medical examination without abnormal findings (2) Obesity (BMI 30-39.9): Code(s): E66.9 - Obesity, unspecified Plan: Diet and exercise (3) Hypertension: Code(s): I10 - Essential (primary) hypertension Qualifiers: Hypertension type: essential hypertension Qualified Code(s): I10 - Essential (primary) hypertension Plan: Continue with blood pressure medication. Decrease salt intake and exercise (4) Hypercholesterolemia: Code(s): E78.00 - Pure hypercholesterolemia, unspecified Plan: Avoid fried foods, chicken skin, eggs, butter margarine, pastries and meat. Be it pork or beef they have a lot of cholesterol LDL goal of less than 130 and triglyceride of less than 150 patient was reminded to get the blood work (5) Generalized anxiety disorder: Comment: Service NET. Code(s): F41.1 - Generalized anxiety disorder Plan: Continue with anxiety medication as need (6) Colon cancer screening: Code(s): Z12.11 - Encounter for screening for malignant neoplasm of colon (7) Breast cancer screening by mammogram: Code(s): Z12.31 - Encounter for screening mammogram for malignant neoplasm of breast (8) Age-related osteoporosis without current pathological fracture: Code(s): M81.0 - Age-related osteoporosis without current pathological fracture Orders: Orders MM tomosynthesis screening BI Today Z12.31 - Encounter for screening mammogram for malignant neoplasm of breast XR DEXA axial skeleton Today M81.0 - Age-related osteoporosis without current pathological fracture Referrals Cologuard Test Z12.11 - Encounter for screening for malignant neoplasm of colon Medications: Changed From tramadol 50 mg PO DAILY 90 days PRN 90 tabs 2RF pain M89.49 - Other hypertrophic osteoarthropathy, multiple sites To tramadol 50 mg PO BID 90 days PRN 180 tabs 2RF pain M89.49 - Other hypertrophic osteoarthropathy, multiple sites Quality Reporting (2019) Fall Risk Screening ([facility]) Last assessed Fall Risk: 10/24/22 Fall risk assessment: No Falls in past year Depression/Bipolar (159/160/161/177) PHQ-9: Total score: 2 Coding Level of Care Code Medicare First (G0438) Diagnoses Medicare annual wellness visit, initial Z00.00 Obesity (BMI 30-39.9) E66.9 Hypertension I10 Hypertension type: essential hypertension Hypercholesterolemia E78.00 Generalized anxiety disorder F41.1 Colon cancer screening Z12.11 Breast cancer screening by mammogram Z12.31 Age-related osteoporosis without current pathological fracture M81.0
== END 2022-10-24 14:56 | disposition home or self-care (01) ==
PROVIDERS: Visit Provider Internal Medicine
DX: Z00.00 Encounter for general adult medical examination without abnormal findings (principal); E66.9 Obesity, unspecified; Z68.31 Body mass index [BMI] 31.0-31.9, adult; Z23 Encounter for immunization; I10 Essential (primary) hypertension; E78.00 Pure hypercholesterolemia, unspecified; F41.1 Generalized anxiety disorder; Z12.11 Encounter for screening for malignant neoplasm of colon; Z12.31 Encounter for screening mammogram for malignant neoplasm of breast; M81.0 Age-related osteoporosis without current pathological fracture
CPT/HCPCS: 90471; 90677; G0438; G0439

== ENCOUNTER 2022-11-29 12:10 | Outpatient (REF) | payer MEDICARE, MEDICAID, SELFPAY ==
--- NOTE | ~2022-11-29 | MM_ITS ---
EXAMINATION: BONE DENSITOMETRY CLINICAL INDICATION: Age-related osteoporosis without current pathological fracture. COMPARISON: This is the patient's baseline examination. TECHNIQUE: Using a mSpoke DXA System (software version: 13.1) manufactured by [employer], dual-energy x-ray absorptiometry was performed of the lumbar spine and left hip. The images are of good technical quality. Summary results are attached. FINDINGS: LEFT FEMUR, NECK: BMD 0.966 g/cm2, Z-score 0.7, T-score -0.5, normal. LEFT FEMUR, TOTAL: BMD 0.959 g/cm2, Z-score 0.5, T-score -0.4, normal. AP SPINE L1-L4: BMD 1.577 g/cm2, Z-score 4.3, T-score 3.3, normal. IDENTIFIED RISK FACTORS: Low calcium intake, history of fracture (adult). Early menopause, secondary osteoporosis, thiazide. HISTORY OF FRACTURE: Wrist. Other. MEDICATIONS: None listed. MM/XR DEXA axial skeleton IMPRESSION: 1. DIAGNOSIS: Normal bone density based on the lowest T-score value of -0.5 in the femoral neck applying World Health Organization criteria. 2. 10-YEAR FRACTURE RISK PREDICTION, FRAX: According to the guidelines, FRAX calculation should only be performed on patients in the osteopenia bone density category. Therefore, FRAX was not performed on this patient. 3. Treatment Recommendations: NOF guidelines recommend consideration for treatment in postmenopausal women and men age 50 and older presenting with the following: -A hip or vertebral (clinical or morphometric) fracture. -T-score less than or equal to -2.5 at the femoral neck or spine after appropriate evaluation to exclude secondary causes. -Low bone mass at the hip or spine and a 10-year fracture probability by FRAX of greater than or equal to 3% for hip fracture or greater than or equal to 20% for major osteoporotic fracture based on the [place] adapted WHO algorithm. 4. Other Recommendations: All treatment decisions require clinical judgment and consideration of individual patient factors, including patient preferences, comorbidities, previous drug use, risk factors not captured in the FRAX model (e.g. frailty, falls, vitamin D deficiency, increased bone turnover, interval significant decline in bone density) and possible under or overestimation of fracture risk by FRAX. FUTURE SCAN RECOMMENDATION: People with diagnosed cases of osteoporosis or at high risk for fracture should have regular bone mineral density tests. For patients eligible for Medicare, routine testing is allowed once every 2 years. The testing frequency can be increased to one year for patients who have rapidly progressing disease, those who are receiving or discontinuing medical therapy to restore bone mass, or have additional risk factors.
== END 2022-11-29 12:11 | disposition home or self-care (01) ==
LOC: HO.MAMMO 12:10
PROVIDERS: PCP Internal Medicine; Visit Provider Internal Medicine
DX: Z12.31 Encounter for screening mammogram for malignant neoplasm of breast (principal); Z13.820 Encounter for screening for osteoporosis; Z78.0 Asymptomatic menopausal state; M81.0 Age-related osteoporosis without current pathological fracture
CPT/HCPCS: 77063; 77067; 77080

== ENCOUNTER → 2022-11-29 13:00 | Outpatient (BNV) | payer MEDICARE, MEDICAID, SELFPAY | PROVIDERS: PCP Internal Medicine; Visit Provider Radiology Diagnostic Radiology | DX: Z12.31 Encounter for screening mammogram for malignant neoplasm of breast (principal); Z90.12 Acquired absence of left breast and nipple | CPT/HCPCS: 77063; 77067; 77080 ==

== ENCOUNTER 2023-03-01 09:52 | Outpatient (AMB) | payer MEDICARE, MEDICAID, SELFPAY ==
[2023-03-01 09:55] VITALS: BP 120/90; PULSE 78; O2SAT 99; BMI 29.6
--- NOTE | 2023-03-01 09:55 | A.OFFPC_ITS ---
Vital Signs 03/01/23 09:55 Height 5 ft 6 in Weight 183 lb 4 oz BMI 29.6 BP 120/90 H Blood Pressure Location Lt brachial Position Sitting Pulse 78 Pulse Source Pulse Oximeter Pulse Oximetry (%) 99 Oxygen Delivery Method Room Air Intake Visit Reasons: black tarry stools. left ED before being seen Excellence Consultant Required: No Accompanied by: Self / Same As Patient Allergies tetanus toxoid, adsorbed [Tetanus Toxoid,Adsorbed] Allergy (Intermediate, Verified 03/01/23 12:04) FLU LIKE SYMPTOMS Tetanus Allergy (Unknown, Verified 03/01/23 12:04) cold duloxetine [Cymbalta] Adverse Reaction (Unknown, Verified 03/01/23 12:04) not sure Medication List - Last Reconciled 03/01/23 by Shakir Rincon MD alprazolam 0.5 mg PO TID 90 days aspirin 81 mg PO DAILY atorvastatin 80 mg PO BEDTIME diclofenac sodium 1% (Arthritis Pain (diclofenac)) 4 grams topical QID loratadine 10 mg PO DAILY metoprolol succinate ER 100 mg PO DAILY nitrofurantoin macrocrystal 100 mg PO BID sacubitril-valsartan 24-26 mg (Entresto) 1 tab PO BID ticagrelor (Brilinta) 90 mg PO BID tramadol 50 mg PO BID PRN 90 days valacyclovir (Valtrex) 1,000 mg PO DAILY Tobacco use date assessed: 03/01/23 Fall risk assessment: 2 + Falls in past year Last assessed Fall Risk: 03/01/23 Dental Screening Dental Screen Date: 03/01/23 Did you have a dental visit in the last 12 months?: No Did you have a dental problem in the last 6 months where you did not have access to dental care?: No Was dental information given to patient?: No HPI black tarry stools. left ED before being seen HPI Details Patient comes in today complaining of diarrhea and dark coffee stools with rectal pain that she states started a couple of days ago Relates that she was admitted to [facility] recently from 02/23/23 to 02/26/23 after she went to the ER last week with chest pains Was diagnosed with anterior STEMI and Tx with PCI and ROBERTA to LAD on 02/24/2023; TTE 02/24/23 showed LVEF 35% with anterior hypokinesis She is currently on Brilinta 90 mg BID and Aspirin 81 mg QD but states that she was also started on Macrobid when she was discharged for what she presumed was a UTI States that she stopped taking Brilinta and Macrobid yesterday morning due to her rectal pain and diarrhea and noted that her symptoms appear to have resolved yesterday afternoon with no recurrence since She is in today for follow-up to find out what she needs to do next States that she presently feels okay and denies any fever, headaches or dizziness Denies any chest pains, no shortness of breath No nausea / vomiting, no abdominal pain and states that her rectal pain has also resolved [facility] Medical History Pure hypercholesterolemia Ischemic cardiomyopathy Colonoscopy refused Raynauds disease Rosacea Hypertension Obesity (BMI 30-39.9) Varicose veins of anus or rectum Fibromyalgia Hypercholesterolemia History of breast cancer Osteoarthritis Surgical History Hx of breast augmentation History of tubal ligation History of cone biopsy of uterine cervix History of mastectomy Family History Father Angina pectoris Past heart attack Mother Diabetes Stroke CVD (cardiovascular disease) Social History Housing: Apartment Alcohol intake: current Alcohol intake frequency: holidays/special occasions only Patient Tobacco Use Status: Never used Tobacco e-Cigarette/Vaping Use: Never Used Second Hand Smoke Exposure: No service: No Current occupational status: disabled Cognitive needs: No Hearing needs: No Vision needs: Yes Questionnaire PHQ-9 Over the last 2 weeks, how often have you been bothered by any of the following problems? 1. Little interest or pleasure in doing things: not at all 2. Feeling down, depressed, or hopeless: not at all 3. Trouble falling or staying asleep, or sleeping too much: several days 4. Feeling tired or having little energy: several days 5. Poor appetite or overeating: not at all 6. Feeling bad about yourself - or that you are a failure or have let yourself or your family down: not at all 7. Trouble concentrating on things, such as reading the newspaper or watching television: not at all 8. Moving or speaking so slowly that other people could have noticed. Or the opposite - being so fidgety or restless that you have been moving around a lot more than usual: not at all 9. Thoughts that you would be better off or of hurting yourself in some way: not at all Total score: 2 Depression Screening Interpretation: Negative Depression Screening Done: Yes [id number] - PHQ-9 Billing: Yes Source: Developed by Drs. Neil Banda, Gloria Yuen, Andrae Farfan and colleagues, with an educational dudley from [employer]. Thrive Questionnaire Date Thrive assessed: 03/01/23 I am a: Patient What is your living situation today?: I have a steady place to live Within the past 12 months, did the food you bought not last and you didn't have the money to get more?: Never true Within the past 12 months, did you worry whether your food would run out before you got money to buy more?: Never true Do you have trouble paying for medicines?: No Do you have trouble getting transportation to medical appointments?: No Do you have trouble paying your heating and electricity bill?: No Do you have trouble taking care of your child, family member or friend?: No Do you have trouble with day-to-day activities such as bathing, preparing meals, shopping, managing finances, etc.?: No Are you currently unemployed and looking for a job?: No Are you interested in more education?: No Please select the resources that you would like help with: None Currently or been in a relationship where the following occur: no concerns reported AUDIT C Alcohol Use Questionnaire (AUDIT-C) 1. How often do you have a drink containing alcohol?: 2-3 times a week 2. How many drinks containing alcohol do you have on a typical day when you are drinking?: 1 or 2 3. How often do you have six or more drinks on one occasion?: Never Total Score: 3 Score Reviewed/Action Taken: Yes AMITA-7 AMB Questionnaire AMITA-7 Date AMITA - 7 assessed: 03/01/23 Feeling nervous, anxious, or on edge: 1 = Several days Not being able to stop or control worryin = Several days Worrying too much about different things: 1 = Several days Trouble relaxin = Several days Being so restless that it is hard to sit still: 1 = Several days Becoming easily annoyed or irritable: 1 = Several days Feeling afraid as if something awful might happen: 1 = Several days Total AMITA-7 score (0-4 normal; 5-9 mild; 10-14 moderate; 15-21 severe): 7 Source: Developed by Drs. Neil Banda, Gloria Yuen, Andrae Farfan and colleagues, with an educational dudley from [employer]. Review of Systems Const Denies chills, Denies fatigue, Denies fever(s) and Denies headache(s) ENT Denies dysphagia, Denies dizziness, Denies otalgia, Denies headache(s), Denies neck pain, Denies odynophagia and Denies sore throat Card Denies chest pain, Denies palpitations and Denies dyspnea Resp Denies cough and Denies dyspnea GI Denies abdominal pain, Denies constipation, Denies dysphagia, Denies heartburn, Denies diarrhea, Denies nausea, Denies odynophagia and Denies vomiting Denies difficulty voiding, Denies nocturia and Denies dysuria Musc Denies neck pain Neuro Denies dizziness and Denies headache(s) Endo Denies fatigue and Denies palpitations Physical exam (Primary Care) Vital Signs: Last Vital Signs Pulse 78 03/01/23 09:55 BP 120/90 H 03/01/23 09:55 Pulse Ox 99 03/01/23 09:55 Oxygen Delivery Method Room Air 03/01/23 09:55 BMI result Body Mass Index 29.6 Tobacco/Smoking Status: Tobacco use Status Tobacco use date assessed 03/01/23 03/01/23 10:08 Patient Tobacco Use Status Never used Tobacco 03/01/23 10:08 e-Cigarette/Vaping Use Never Used 03/01/23 10:08 PHQ-9: PHQ-9 Score PHQ-9: Total score 2 03/01/23 10:52 Depression Screening Interpretation: Negative Thrive Assessment: Date of Thrive Assessment Date Thrive assessed 03/01/23 03/01/23 10:08 Currently or been in a relationship where the following occur: no concerns reported Const General: no acute distress and alert HENMT Throat: Yes posterior oropharynx normal and Yes tonsils normal (no TP congestion) Neck Neck: Yes no lymphadenopathy and Yes supple Resp Auscultation: clear to auscultation bilaterally, no rales and no wheezes Cardio Rate: regular rate Rhythm: regular rhythm Heart sounds: no murmurs GI Palpation (GI): Soft to palpation and nontender Auscultation: normal bowel sounds Skin General skin exam: no rashes or lesions noted Extrem General: Yes no clubbing, cyanosis or edema Results AMB Urinalysis, Automated UA Leukoctes 0 Adebayo/uL Last Edit by Brittanie Wilson on 03/01/23 10:54 UA Nitrite Negative Last Edit by Brittanie Wilson on 03/01/23 10:54 UA Urobilinogen 0.2 mg/dL Last Edit by Brittanie Wilson on 03/01/23 10:54 UA Protein 0 mg/dL Last Edit by Brittanie Wilson on 03/01/23 10:54 UA pH 6.0 Last Edit by Brittanie Wilson on 03/01/23 10:54 UA Blood 0 Randolph/uL Last Edit by Brittanie Wilson on 03/01/23 10:54 UA Specific [place] 1.025 Last Edit by Brittanie Wilson on 03/01/23 10:54 UA Ketone Negative Last Edit by Brittanie Wilson on 03/01/23 10:54 UA Bilirubin 0 mg/dL Last Edit by Brittanie Wilson on 03/01/23 10:54 UA Glucose 0 mg/dL Last Edit by Brittanie Wilson on 03/01/23 10:54 Results Reviewed Results Reviewed: Laboratory Last Values Urine pH (Auto) 6.0 03/01/23 10:52 Specific [place] (Auto) 1.025 03/01/23 10:52 Urine Protein (Auto) 0 mg/dL 03/01/23 10:52 Glucose (UA)(Auto) 0 mg/dL 03/01/23 10:52 Urine Ketones (Auto) Negative 03/01/23 10:52 Urine Blood (Auto) 0 [place]/uL 03/01/23 10:52 Urine Nitrite (Auto) Negative 03/01/23 10:52 Urine Bilirubin (Auto) 0 mg/dL 03/01/23 10:52 Urine Urobilinogen (Auto) 0.2 mg/dL 03/01/23 10:52 Leukocyte Esterase (Auto) 0 Adebayo/uL 03/01/23 10:52 Assessment and Plan Assessment & Plan (1) Coronary atherosclerosis: Comment: S/P anterior STEMI - Tx with PCI and ROBERTA to LAD on 02/24/2023; TTE 02/24/23 showed LVEF 35% with anterior hypokinesis Code(s): I25.10 - Atherosclerotic heart disease of [place] coronary artery without angina pectoris Qualifiers: Associated angina: without angina Coronary Disease-Associated Artery/Lesion type: [place] artery [place] vs. transplanted heart: [place] heart Qualified Code(s): I25.10 - Atherosclerotic heart disease of [place] coronary artery without angina pectoris Plan: S/P anterior STEMI; underwent urgent cardiac cath and was Tx with PCI and ROBERTA to LAD on 02/24/2023 TTE on 02/24/23 showed LVEF 35% with anterior hypokinesis Continue Aspirin 81 mg QD - reminded patient that she has to be on low dose Aspirin for life She was started on Brilinta 90 mg BID and advised to continue this for 1 year p ost-PCI (through 02/23/2023) but patient stopped taking this yesterday due to diarrhea - states that her diarrhea stopped a few hours later when she stopped both her Brilinta and Macrobid so she is not sure at this time which one caused her recent diarrhea Will have patient start back on Brilinta and advised that if her diarrhea recurs shortly, then she is to discontinue Rx and call us back and we will likely have to switch her over to Clopidogrel; otherwise, if she has no problems upon resumption of Brilinta, then she should continue on Rx at 90 mg BID along with her low dose Aspirin (2) Ischemic cardiomyopathy: Code(s): I25.5 - Ischemic cardiomyopathy Plan: TTE done on 02/24/2023 revealed LVEF of 35% with anterior hypokinesia Continue Metoprolol ER 100 mg QD and Entresto 24-26 mg BID Was referred for cardiac rehab, which she will hopefully be starting soon Advised that she will need repeat echocardiogram in 6 weeks and if LVEF continues to be depressed (<35%), should consider AICD Follow up with cardiology as scheduled - patient requested for referral to [facility] (3) Urinary tract infection: Code(s): N39.0 - Urinary tract infection, site not specified Qualifiers: Hematuria presence: without hematuria Urinary tract infection type: site unspecified Qualified Code(s): N39.0 - Urinary tract infection, site not specified Plan: Appears RESOLVED - in-office urinalysis done today came out normal (negative for nitrates and luecocytes) She was started on Nitrofurantoin 100 mg BID upon discharge from [facility] last Monday (02/24/2023) and states that her diarrhea started a couple of days later, after which she stopped her Rx Advised that her current urinalysis looks clear so she does not need to go on any Abx at present Have advised her to increase her oral fluids and perhaps also try some cranberry juice for a while if she starts experiencing any acute urinary symptoms (4) Diarrhea: Code(s): R19.7 - Diarrhea, unspecified Qualifiers: Diarrhea type: unspecified type Qualified Code(s): R19.7 - Diarrhea, unspecified Plan: States that her symptoms resolved when she stopped taking both Macrobid and Brilinta yesterday Is advised that her diarrhea seems to be more likely due to Macrobid but as her urinalysis done today is clear, she does not need to take any other Abx at present Is advised to try starting back on Brilinta MADIE and to call us back if her diarrhea recurs shortly after resumption of Brilinta (5) Pure hypercholesterolemia: Code(s): E78.00 - Pure hypercholesterolemia, unspecified Plan: Reinforced low cholesterol diet Continue Atorvastatin 80 mg QD Will have patient recheck her labs and fasting lipids next month for follow up Plan Follow up with PCP in April 2023 as scheduled Orders: Orders AMB Urinalysis Automated 03/01/23 Z13.9 - Encounter for screening, unspecified Complete Blood Count Auto Diff 04/06/23 I25.5 - Ischemic cardiomyopathy Comprehensive [place]. Panel Fast 04/06/23 E78.00 - Pure hypercholesterolemia, unspecified Lipid Panel 04/06/23 E78.00 - Pure hypercholesterolemia, unspecified Referrals Cardiology Referral I25.10 - Atherosclerotic heart disease of [place] coronary artery without angina pectoris Coding Level of Care Code Est Pt Level 4 (68225) Diagnoses Atherosclerosis of [place] coronary artery of [place] heart without angina pectoris I25.10 Associated angina: without angina Coronary Disease-Associated Artery/Lesion type: [place] artery [place] vs. transplanted heart: [place] heart Ischemic cardiomyopathy I25.5 Urinary tract infection without hematuria, site unspecified N39.0 Hematuria presence: without hematuria Urinary tract infection type: site unspecified Diarrhea, unspecified type R19.7 Diarrhea type: unspecified type Pure hypercholesterolemia E78.00
== END 2023-03-01 10:55 | disposition home or self-care (01) ==
PROVIDERS: PCP Internal Medicine; Visit Provider Internal Medicine
DX: I25.10 Atherosclerotic heart disease of native coronary artery without angina pectoris (principal); N39.0 Urinary tract infection, site not specified; R19.7 Diarrhea, unspecified; E78.00 Pure hypercholesterolemia, unspecified
CPT/HCPCS: 81003; 99214

== ENCOUNTER 2023-03-20 14:54 | Outpatient (REF) | payer MEDICARE, MEDICAID, SELFPAY ==
[2023-03-20 17:19] LABS: Appearance Urine Clear; Color Urine Yellow; Glucose Urine UA Negative (Negative); Leukocyte Esterase Urine Moderate (2+) (Negative); Nitrite Urine Negative (Negative); UMIC TRIGGER UACC YES; Urine Blood Negative (Negative); Urine Ketones Negative (Negative); Urine Protein Negative (Neg-Trace)
[2023-03-20 17:57] LABS: Bacteria Urine 4+ (None Seen); Hyaline Casts Urine 0-2 /LPF (0-2); RBC Urine 0-2 /HPF (0-2); UACC Culture Trigger YES; WBC Urine 21-50 /HPF (0-5)
== END 2023-03-20 14:55 | disposition home or self-care (01) ==
LOC: HO.LAB 14:54
PROVIDERS: PCP Internal Medicine; Visit Provider Internal Medicine
DX: R39.9 Unspecified symptoms and signs involving the genitourinary system (principal)
CPT/HCPCS: 81001; 87086; 87088; 87186

== ENCOUNTER 2023-04-13 12:51 | Outpatient (AMB) | payer MEDICARE, MEDICAID, SELFPAY ==
[2023-04-13 12:52] VITALS: BP 110/70; PULSE 57; O2SAT 100; BMI 29.9
--- NOTE | 2023-04-13 12:52 | MHC.PC.OV ---
Vital Signs 04/13/23 12:52 Height 5 ft 6 in Weight 185 lb 0.6 oz BMI 29.9 BP 110/70 Blood Pressure Location Lt brachial Position Sitting Pulse 57 Pulse Source Pulse Oximeter Pulse Oximetry (%) 100 Oxygen Delivery Method Room Air Intake Visit Reasons: Med Visit 3 M F/U Intake Note: Patient is here to follow up on 3 months Visual Merchandising Coordinator Required: No Allergies tetanus toxoid, adsorbed [Tetanus Toxoid,Adsorbed] Allergy (Intermediate, Verified 04/13/23 12:52) FLU LIKE SYMPTOMS Tetanus Allergy (Unknown, Verified 04/13/23 12:52) cold duloxetine [Cymbalta] Adverse Reaction (Unknown, Verified 04/13/23 12:52) not sure Tobacco use date assessed: 04/13/23 Fall risk assessment: No Falls in past year Last assessed Fall Risk: 04/13/23 Dental Screening Dental Screen Date: 04/13/23 Did you have a dental visit in the last 12 months?: No Did you have a dental problem in the last 6 months where you did not have access to dental care?: No HPI Med Visit 3 M F/U HPI Details 67-year-old overweight female with hypertension hypercholesterolemia generalized anxiety disorder last seen in October 2022. Patient has declined colonoscopy, mammogram is up-to-date and bone density up-to-date. Review of the notes patient just saw Cardiology as February 2023 had jaw pain and noted EKG changes cardiac catheterization done minimal luminal changes in the left main, proximal left anterior descending artery lesion with left circumflex and RCA patient had stent placement echocardiogram did show ejection fraction of 30-40% with mid to distal septal akinesis and distal anterior wall akinesis as well as akinesis of the apex. Diagnosis of septal infarct. Patient placed on aspirin and Brilinta and Entresto, on hydrochlorothiazide and metoprolol succinate Brilinta was changed to Plavix notes showing taper back statin and Entresto. Review of the notes patient was seen by my colleague in February because of black stools Brilinta was stopped due to rectal pain and diarrhea [facility] Medical History Pure hypercholesterolemia Ischemic cardiomyopathy Colonoscopy refused Raynauds disease Rosacea Hypertension Obesity (BMI 30-39.9) Varicose veins of anus or rectum Fibromyalgia Hypercholesterolemia History of breast cancer Osteoarthritis Surgical History Hx of breast augmentation History of tubal ligation History of cone biopsy of uterine cervix History of mastectomy Family History Father Angina pectoris Past heart attack Mother Diabetes Stroke CVD (cardiovascular disease) Social History Housing: Apartment Alcohol intake: current Alcohol intake frequency: holidays/special occasions only Patient Tobacco Use Status: Never used Tobacco e-Cigarette/Vaping Use: Never Used Second Hand Smoke Exposure: No service: No Current occupational status: disabled Cognitive needs: No Hearing needs: No Vision needs: Yes Questionnaire Thrive Questionnaire Date Thrive assessed: 04/13/23 I am a: Patient What is your living situation today?: I have a steady place to live Within the past 12 months, did the food you bought not last and you didn't have the money to get more?: Never true Within the past 12 months, did you worry whether your food would run out before you got money to buy more?: Never true Do you have trouble paying for medicines?: No Do you have trouble getting transportation to medical appointments?: No Do you have trouble paying your heating and electricity bill?: No Do you have trouble taking care of your child, family member or friend?: No Do you have trouble with day-to-day activities such as bathing, preparing meals, shopping, managing finances, etc.?: No Are you currently unemployed and looking for a job?: No Are you interested in more education?: No Please select the resources that you would like help with: None THRIVE Score: 0 AUDIT C Alcohol Use Questionnaire (AUDIT-C) 1. How often do you have a drink containing alcohol?: 2-3 times a week 2. How many drinks containing alcohol do you have on a typical day when you are drinking?: 1 or 2 3. How often do you have six or more drinks on one occasion?: Never Total Score: 3 Score Reviewed/Action Taken: Yes AMITA-7 AMB Questionnaire AMITA-7 Date AMITA - 7 assessed: 04/13/23 Source: Developed by Drs. Neil Banda, Gloria Yuen, Andrae Farfan and colleagues, with an educational dudley from [employer]. Physical exam (Primary Care) Vital Signs: Last Vital Signs Pulse 57 04/13/23 12:52 BP 110/70 04/13/23 12:52 Pulse Ox 100 04/13/23 12:52 Oxygen Delivery Method Room Air 04/13/23 12:52 BMI result Body Mass Index 29.9 Tobacco/Smoking Status: Tobacco use Status Tobacco use date assessed 04/13/23 04/13/23 12:53 Patient Tobacco Use Status Never used Tobacco 04/13/23 12:53 e-Cigarette/Vaping Use Never Used 04/13/23 12:53 Thrive Assessment: Date of Thrive Assessment Date Thrive assessed 04/13/23 04/13/23 12:53 Const General: alert; No acute distress Eyes Conjunctivae: conjunctivae normal Resp Auscultation: clear to auscultation bilaterally Cardio Rate: regular rate Rhythm: regular rhythm GI Inspection: Yes normal to inspection Extrem General: Yes normal to inspection and No edema Assessment and Plan Assessment & Plan (1) Coronary atherosclerosis: Comment: S/P anterior STEMI - Tx with PCI and ROBERTA to LAD on 02/24/2023; TTE 02/24/23 showed LVEF 35% with anterior hypokinesis Code(s): I25.10 - Atherosclerotic heart disease of [place] coronary artery without angina pectoris Qualifiers: Coronary Disease-Associated Artery/Lesion type: [place] artery [place] vs. transplanted heart: [place] heart Associated angina: without angina Qualified Code(s): I25.10 - Atherosclerotic heart disease of [place] coronary artery without angina pectoris Plan: Control the cholesterol, weight, blood pressure, diabetes continuing with Plavix and aspirin till February 2024 (2) Pure hypercholesterolemia: Code(s): E78.00 - Pure hypercholesterolemia, unspecified Plan: Avoid fried foods, chicken skin, eggs, butter margarine, pastries and meat. Be it pork or beef they have a lot of cholesterol LDL goal of below 70 and triglyceride of less than 150 presently on atorvastatin 80 mg once a day (3) Ischemic cardiomyopathy: Code(s): I25.5 - Ischemic cardiomyopathy Plan: Patient has been followed up by Cardiology and echocardiogram planned (4) Hypertension: Code(s): I10 - Essential (primary) hypertension Qualifiers: Hypertension type: essential hypertension Qualified Code(s): I10 - Essential (primary) hypertension Plan: Continue with blood pressure medication. Decrease salt intake and exercise presently on metoprolol 100 mg once a day Entresto for 24/26 mg twice a day (5) Generalized anxiety disorder: Comment: Service NET. Code(s): F41.1 - Generalized anxiety disorder Plan: Continue with medications for anxiety Orders: Orders Comprehensive [place]. Panel Fast Today E78.00 - Pure hypercholesterolemia, unspecified Coding Level of Care Code Est Pt Level 4 (60394) Diagnoses Atherosclerosis of [place] coronary artery of [place] heart without angina pectoris I25.10 Coronary Disease-Associated Artery/Lesion type: [place] artery [place] vs. transplanted heart: [place] heart Associated angina: without angina Pure hypercholesterolemia E78.00 Ischemic cardiomyopathy I25.5 Essential hypertension I10 Hypertension type: essential hypertension Generalized anxiety disorder F41.1
== END 2023-04-13 13:42 | disposition home or self-care (01) ==
PROVIDERS: Visit Provider Internal Medicine
DX: I25.10 Atherosclerotic heart disease of native coronary artery without angina pectoris (principal); E78.00 Pure hypercholesterolemia, unspecified; I25.5 Ischemic cardiomyopathy; I10 Essential (primary) hypertension; F41.1 Generalized anxiety disorder
CPT/HCPCS: 99214

== ENCOUNTER 2023-08-08 14:18 | Outpatient (AMB) | payer MEDICARE, MEDICAID, SELFPAY ==
--- NOTE | 2023-08-08 14:21 | MHC.PC.OV ---
Vital Signs 08/08/23 14:23 Height 5 ft 6 in Weight 188 lb BMI 30.3 BP 112/68 Blood Pressure Location Rt brachial Position Sitting Pulse 58 Pulse Source Pulse Oximeter Pulse Oximetry (%) 96 Oxygen Delivery Method Room Air Intake Visit Reasons: cad, HTN, cardiomyopathy Intake Note: Patient is here to follow up on CAD, HTN, Cardiomyopathy. Windows Security Engineer Required: No Multi Purpose Machine Operator: Not Required per policy Accompanied by: Self / Same As Patient Allergies tetanus toxoid, adsorbed [Tetanus Toxoid,Adsorbed] Allergy (Intermediate, Verified 08/08/23 14:23) FLU LIKE SYMPTOMS Tetanus Allergy (Unknown, Verified 08/08/23 14:23) cold duloxetine [Cymbalta] Adverse Reaction (Unknown, Verified 08/08/23 14:23) not sure Tobacco use date assessed: 08/08/23 Fall risk assessment: No Falls in past year Last assessed Fall Risk: 08/08/23 Dental Screening Dental Screen Date: 04/13/23 HPI cad, HTN, cardiomyopathy HPI Details 67-year-old obese female with coronary artery disease hypercholesterolemia ischemic cardiomyopathy hypertension and generalized anxiety disorder last seen in 05/02/2023. Patient is up-to-date with mammogram declined colonoscopy bone density is up-to-date also. Received cardiology notes 07/01/2023 coronary artery disease 03/01/2023 stented LAD ejection fraction of 30-40% with mid to distal septal akinesis and distal anterior wall akinesis and apical akinesis. R hip pain- deny fall or traume PFSH Medical History Pure hypercholesterolemia Ischemic cardiomyopathy Colonoscopy refused Raynauds disease Rosacea Hypertension Obesity (BMI 30-39.9) Varicose veins of anus or rectum Fibromyalgia Hypercholesterolemia History of breast cancer Osteoarthritis Surgical History Hx of breast augmentation History of tubal ligation History of cone biopsy of uterine cervix History of mastectomy Family History Father Angina pectoris Past heart attack Mother Diabetes Stroke CVD (cardiovascular disease) Social History Housing: Apartment Alcohol intake: current Alcohol intake frequency: holidays/special occasions only Patient Tobacco Use Status: Never used Tobacco e-Cigarette/Vaping Use: Never Used Second Hand Smoke Exposure: No service: No Current occupational status: disabled Cognitive needs: No Hearing needs: No Vision needs: Yes Questionnaire PHQ-9 Over the last 2 weeks, how often have you been bothered by any of the following problems? 1. Little interest or pleasure in doing things: not at all 2. Feeling down, depressed, or hopeless: not at all 3. Trouble falling or staying asleep, or sleeping too much: not at all 4. Feeling tired or having little energy: not at all 5. Poor appetite or overeating: not at all 6. Feeling bad about yourself - or that you are a failure or have let yourself or your family down: not at all 7. Trouble concentrating on things, such as reading the newspaper or watching television: not at all 8. Moving or speaking so slowly that other people could have noticed. Or the opposite - being so fidgety or restless that you have been moving around a lot more than usual: not at all 9. Thoughts that you would be better off or of hurting yourself in some way: not at all Total score: 0 Depression Screening Interpretation: Negative Depression Screening Done: Yes Source: Developed by Drs. Neil Banda, Gloria Yuen, Andrae Farfan and colleagues, with an educational dudley from [employer]. Thrive Questionnaire Date Thrive assessed: 04/13/23 AMITA-7 AMB Questionnaire AMITA-7 Date AMITA - 7 assessed: 08/08/23 Feeling nervous, anxious, or on edge: 3 = Nearly every day Not being able to stop or control worryin = Not at all Worrying too much about different things: 0 = Not at all Trouble relaxin = Several days Being so restless that it is hard to sit still: 0 = Not at all Becoming easily annoyed or irritable: 0 = Not at all Feeling afraid as if something awful might happen: 0 = Not at all Total AMITA-7 score (0-4 normal; 5-9 mild; 10-14 moderate; 15-21 severe): 4 Source: Developed by Drs. Neil Banda, Andrae Gill and colleagues, with an educational dudley from [employer]. Physical exam (Primary Care) Vital Signs: Last Vital Signs Pulse 58 08/08/23 14:23 BP 112/68 08/08/23 14:23 Pulse Ox 96 08/08/23 14:23 Oxygen Delivery Method Room Air 08/08/23 14:23 BMI result Body Mass Index 30.3 Tobacco/Smoking Status: Tobacco use Status Tobacco use date assessed 08/08/23 08/08/23 14:31 Patient Tobacco Use Status Never used Tobacco 08/08/23 14:31 e-Cigarette/Vaping Use Never Used 08/08/23 14:31 PHQ-9: PHQ-9 Score PHQ-9: Total score 0 08/08/23 14:31 Depression Screening Interpretation: Negative Thrive Assessment: Date of Thrive Assessment Date Thrive assessed 04/13/23 08/08/23 14:31 Const General: alert; No acute distress Eyes Conjunctivae: conjunctivae normal Resp Auscultation: clear to auscultation bilaterally Cardio Rate: regular rate Rhythm: regular rhythm GI Inspection: Yes normal to inspection Extrem General: Yes normal to inspection and No edema Assessment and Plan Assessment & Plan (1) Coronary atherosclerosis: Comment: S/P anterior STEMI - Tx with PCI and ROBERTA to LAD on 02/24/2023; TTE 02/24/23 showed LVEF 35% with anterior hypokinesis Code(s): I25.10 - Atherosclerotic heart disease of [place] coronary artery without angina pectoris Qualifiers: Coronary Disease-Associated Artery/Lesion type: [place] artery [place] vs. transplanted heart: [place] heart Associated angina: without angina Qualified Code(s): I25.10 - Atherosclerotic heart disease of [place] coronary artery without angina pectoris Plan: Control the cholesterol, weight, blood pressure, diabetes on aspirin and clopidogrel up to 03/01/2024 (2) Ischemic cardiomyopathy: Code(s): I25.5 - Ischemic cardiomyopathy Plan: Patient continues to follow-up with cardiology (3) Pure hypercholesterolemia: Code(s): E78.00 - Pure hypercholesterolemia, unspecified Plan: Avoid fried foods, chicken skin, eggs, butter margarine, pastries and meat. Be it pork or beef they have a lot of cholesterol on atorvastatin 80 mg advised to get blood work done (4) Generalized anxiety disorder: Comment: Service NET. Code(s): F41.1 - Generalized anxiety disorder Plan: Continue with alprazolam as needed (5) Hypertension: Code(s): I10 - Essential (primary) hypertension Qualifiers: Hypertension type: essential hypertension Qualified Code(s): I10 - Essential (primary) hypertension Plan: Continue with blood pressure medication. Decrease salt intake and exercise takes Entresto, metoprolol hydralazine (6) Obesity (BMI 30-39.9): Code(s): E66.9 - Obesity, unspecified Plan: Diet and exercise (7) Hip pain, right: Code(s): M25.551 - Pain in right hip Orders: Orders Complete Blood Count Auto Diff Today I25.5 - Ischemic cardiomyopathy XR hip RT min 2V Today M25.551 - Pain in right hip Medications: New atorvastatin 20 mg PO BEDTIME 30 tabs 3RF I25.10 - Atherosclerotic heart disease of [place] coronary artery without angina pectoris Changed From tramadol 50 mg PO BID 90 days PRN 180 tabs 2RF pain M89.49 - Other hypertrophic osteoarthropathy, multiple sites To tramadol 50 mg PO TID 90 days PRN 270 tabs 1RF pain M89.49 - Other hypertrophic osteoarthropathy, multiple sites Coding Level of Care Code Est Pt Level 4 (47447) Diagnoses Atherosclerosis of [place] coronary artery of [place] heart without angina pectoris I25.10 Coronary Disease-Associated Artery/Lesion type: [place] artery [place] vs. transplanted heart: [place] heart Associated angina: without angina Ischemic cardiomyopathy I25.5 Pure hypercholesterolemia E78.00 Generalized anxiety disorder F41.1 Essential hypertension I10 Hypertension type: essential hypertension Obesity (BMI 30-39.9) E66.9 Hip pain, right M25.551
[2023-08-08 14:23] VITALS: BP 112/68; PULSE 58; O2SAT 96; BMI 30.3
== END 2023-08-08 14:54 | disposition home or self-care (01) ==
PROVIDERS: PCP Internal Medicine; Visit Provider Internal Medicine
DX: I25.10 Atherosclerotic heart disease of native coronary artery without angina pectoris (principal); I25.5 Ischemic cardiomyopathy; E78.00 Pure hypercholesterolemia, unspecified; F41.1 Generalized anxiety disorder; I10 Essential (primary) hypertension; M25.551 Pain in right hip
CPT/HCPCS: 99214

== ENCOUNTER 2024-03-05 10:20 | Outpatient (AMB) | payer MEDICARE, MEDICAID, SELFPAY ==
--- NOTE | 2024-03-05 10:21 | AM.OFFVISMDC ---
Intake Vital Signs 03/05/24 10:22 Height 5 ft 6 in Weight 224 lb BMI 36.2 BP 120/82 Blood Pressure Location Lt brachial Position Sitting Pulse 88 Pulse Source Pulse Oximeter Pulse Oximetry (%) 98 Oxygen Delivery Method Room Air Intake Visit Reasons: AWV Allergies tetanus toxoid, adsorbed [Tetanus Toxoid,Adsorbed] Allergy (Intermediate, Verified 03/05/24 10:25) FLU LIKE SYMPTOMS Tetanus Allergy (Unknown, Verified 03/05/24 10:25) cold duloxetine [Cymbalta] Adverse Reaction (Unknown, Verified 03/05/24 10:25) not sure Medication List - Last Reconciled 03/05/24 by Dada Torres MD alprazolam 0.5 mg PO TID 90 days aspirin 81 mg PO DAILY atorvastatin 20 mg PO BEDTIME clopidogrel 75 mg PO DAILY diclofenac sodium 1% (Arthritis Pain (diclofenac)) 4 grams topical QID hydralazine 50 mg PO TID loratadine 10 mg PO DAILY metoprolol succinate ER 50 mg PO DAILY multivitamin 1 tab PO DAILY sacubitril-valsartan 24-26 mg (Entresto) 1 tab PO BID tramadol 50 mg PO TID PRN 90 days HPI AWV HPI Details Dr. Burt cardiology, [facility] Medical History (Updated 03/05/24 @ 10:59 by Dada Torres MD) Hypercholesterolemia Pure hypercholesterolemia Ischemic cardiomyopathy Colonoscopy refused Raynauds disease Rosacea Hypertension Obesity (BMI 30-39.9) Varicose veins of anus or rectum Fibromyalgia History of breast cancer Osteoarthritis Surgical History Hx of breast augmentation History of tubal ligation History of cone biopsy of uterine cervix History of mastectomy Family History Father Angina pectoris Past heart attack Mother Diabetes Stroke CVD (cardiovascular disease) Social History (Updated 03/05/24 @ 10:44 by Dada Torres MD) Housing: Apartment Alcohol intake: current Alcohol intake frequency: holidays/special occasions only Comment: once a month beer Patient Tobacco Use Status: Never used Tobacco e-Cigarette/Vaping Use: Never Used Second Hand Smoke Exposure: No service: No Current occupational status: disabled Cognitive needs: No Hearing needs: No Vision needs: Yes Questionnaire Medicare Wellness Checkup [age] What gender do you identify with?: female During the past 4 weeks, how much have you been bothered by emotional problems such as feeling anxious, depressed, irritable, sad or downhearted, and blue?: quite a bit During the past 4 weeks, has your physical & emotional health limited your social activities with family, friends, neighbors, or groups?: slightly During the past 4 weeks, how much bodily pain have you generally had?: moderate pain During the past 4 weeks, was someone available to help you if you needed & wanted help?: yes, a little During the past 4 weeks, what was the hardest physical activity you could do for at least 2 minutes?: light Can you get to places out of walking distance without help? (For eg., can you travel alone on buses, taxis or drive your car?): Yes Can you go shopping for groceries or clothes without someone's help?: Yes Can you prepare your own meals?: Yes Can you do your housework without help?: Yes Because of any health problems, do you need the help of another person with your personal care needs such as eating, bathing, dressing or getting around the house?: No Can you handle your own money without help?: Yes During the past 4 weeks, how would you rate your health in general?: fair During the past 4 weeks how have things been going for you?: good & bad parts about equal Are you having difficulties driving your car?: not applicable, I don't use a car Do you always fasten your seat belt when you are in a car?: yes, usually During past 4 weeks, have you been bothered by the following: never: Sexual problems?, Trouble eating well? and Problems using the telephone?, seldom: Falling or dizzy when standing up and Teeth or denture problems? and often: Tiredness or fatigue? Have you fallen 2 or more times in the past year?: No Are you afraid of falling?: Yes Are you a smoker?: no During the past 4 weeks, how many drinks of wine, beer, or other alcoholic beverages did you have?: 1 drink or less per week Do you exercise for about 20 minutes 3 or more times a week?: yes, most of the time Have you been given information to help with the following?: yes: Hazards in your house that might hurt you? and yes: Keeping track of your medications? How often do you have trouble taking medicines the way you have been told to take them?: I always take medicine as prescribed How confident are you that you can control & manage most of your health problems?: somewhat confident What is your race?: White PHQ-9 Over the last 2 weeks, how often have you been bothered by any of the following problems? 1. Little interest or pleasure in doing things: not at all 2. Feeling down, depressed, or hopeless: several days 3. Trouble falling or staying asleep, or sleeping too much: nearly every day 4. Feeling tired or having little energy: more than half the days 5. Poor appetite or overeating: not at all 6. Feeling bad about yourself - or that you are a failure or have let yourself or your family down: not at all 7. Trouble concentrating on things, such as reading the newspaper or watching television: not at all 8. Moving or speaking so slowly that other people could have noticed. Or the opposite - being so fidgety or restless that you have been moving around a lot more than usual: not at all 9. Thoughts that you would be better off or of hurting yourself in some way: not at all Total score: 6 Depression Screening Interpretation: Positive Depression Screening Done: Yes [id number] - PHQ-9 Billing: Yes Source: Developed by Drs. Neil Banda, Gloria Yuen, Andrae Farfan and colleagues, with an educational dudley from [employer]. Review of Systems Const Denies poor appetite and Denies weakness Eyes Denies no additional complaints ENT Reports Normal hearing present, Denies dizziness, Denies nasal congestion, Denies tinnitus and Denies sore throat Card Denies chest pain, Denies syncope, Denies rapid heart rate and Denies dyspnea Resp Denies cough and Denies dyspnea GI Denies change in stool character, Reports constipation, Denies diarrhea, Denies nausea and Denies vomiting Denies urinary frequency, Denies difficulty voiding and Denies dysuria Neuro Reports Normal hearing present, Denies confusion, Denies dizziness, Denies syncope and Denies weakness Psych Denies confusion Physical Exam Vital Signs: Last Vital Signs Pulse 88 03/05/24 10:22 BP 120/82 03/05/24 10:22 Pulse Ox 98 03/05/24 10:22 Oxygen Delivery Method Room Air 03/05/24 10:22 BMI result Body Mass Index 36.2 Const General: No confusion Orientation/consciousness: No confusion HEENT Head: Yes normocephalic Ears: external ears normal and TM's normal bilaterally Face and sinus: Yes normal facial exam Mouth: moist mucous membranes Throat: Yes tonsils normal Eyes Conjunctivae: conjunctivae normal Pupils: Equal, round and reactive pupils present and Pupil accommodation reflex normal Direct Ophthalmoscopy: normal light reflex Neck Neck: No lymphadenopathy Thyroid: Thyroid normal Chest Chest palpation & inspection: normal inspection of the chest Resp Effort & Inspection: normal respiratory effort and no audible wheezes Auscultation: clear to auscultation bilaterally, no crackles, no wheezes and lung sounds not diminished Cardio Rate: regular rate Rhythm: regular rhythm Peripheral pulses: radial pulses present and dorsalis pedis present GI Other: declined Palpation (GI): no masses Auscultation: normal bowel sounds and normoactive bowel sounds Rectal Exam - Female: deferred Skin General skin exam: no rashes or lesions noted Rashes: no rashes Neuro General: No confusion Cranial nerves: Yes Equal, round and reactive pupils present and Yes Normal hearing present Cognition (Neuro): normal cognition Gait exam (Neuro): Normal gait present Motor exam (neuro): 5/5 motor strength present throughout Deep tendon reflexes (DTR's): Right brachioradialis reflex intensity grade: 2+, Left brachioradialis reflex intensity grade: 2+, Right patellar reflex intensity grade: 2+ and Left patellar reflex intensity grade: 2+ Extrem General: No edema Assessment & Plan Assessment & Plan (1) Medicare annual wellness visit, subsequent: Code(s): Z00.00 - Encounter for general adult medical examination without abnormal findings Plan: Patient is advised to eat healthy, keep well hydrated, keep active and have adequate sleep. (2) Obesity (BMI 30-39.9): Code(s): E66.9 - Obesity, unspecified Plan: Diet and exercise (3) Hypertension: Code(s): I10 - Essential (primary) hypertension Qualifiers: Hypertension type: essential hypertension Qualified Code(s): I10 - Essential (primary) hypertension Plan: Continue with blood pressure medication. Decrease salt intake and exercise patient on metoprolol 50 mg once a day hydralazine 50 mg 3 times a day (4) Coronary atherosclerosis: Comment: S/P anterior STEMI - Tx with PCI and ROBERTA to LAD on 02/24/2023; TTE 02/24/23 showed LVEF 35% with anterior hypokinesis Code(s): I25.10 - Atherosclerotic heart disease of [place] coronary artery without angina pectoris Qualifiers: Coronary Disease-Associated Artery/Lesion type: [place] artery [place] vs. transplanted heart: [place] heart Associated angina: without angina Qualified Code(s): I25.10 - Atherosclerotic heart disease of [place] coronary artery without angina pectoris Plan: Control the cholesterol, weight, blood pressure, continue with aspirin 81 mg once a day and patient is about done with the clopidogrel for 1 year. (5) Ischemic cardiomyopathy: Code(s): I25.5 - Ischemic cardiomyopathy Plan: Continue with Entresto low-salt diet and keep active (6) Pure hypercholesterolemia: Code(s): E78.00 - Pure hypercholesterolemia, unspecified Plan: Avoid fried foods, chicken skin, eggs, butter margarine, pastries and meat. Be it pork or beef they have a lot of cholesterol LDL goal of less than 70 and triglyceride of less than 150. On atorvastatin and advised to get blood work done. (7) History of breast cancer: Comment: Two thousand three Code(s): Z85.3 - Personal history of malignant neoplasm of breast Plan: Mammogram is requested (8) Age-related osteoporosis without current pathological fracture: Code(s): M81.0 - Age-related osteoporosis without current pathological fracture Plan: Bone density requested (9) Generalized anxiety disorder: Comment: Service NET., 03/01/2024 declined counseling Code(s): F41.1 - Generalized anxiety disorder Plan: Continue with present medication. Orders: Orders Lipid Panel Today E78.00 - Pure hypercholesterolemia, unspecified Free T4 (Free Thyroxine) Today I25.10 - Atherosclerotic heart disease of [place] coronary artery without angina pectoris Vitamin D 25-OH Total Today I25.10 - Atherosclerotic heart disease of [place] coronary artery without angina pectoris XR DEXA axial skeleton Today M81.0 - Age-related osteoporosis without current pathological fracture B Type Natriuretic Peptide Today I25.10 - Atherosclerotic heart disease of [place] coronary artery without angina pectoris MM tomosynthesis screening BI Today Z12.31 - Encounter for screening mammogram for malignant neoplasm of breast Referrals Cologuard Test Z12.11 - Encounter for screening for malignant neoplasm of colon Quality Reporting (2020) Depression/Bipolar (159/160/161/177) PHQ-9: Total score: 6 Coding Level of Care Code Medicare Subsequent (G0439) Diagnoses Medicare annual wellness visit, subsequent Z00.00 Obesity (BMI 30-39.9) E66.9 Essential hypertension I10 Hypertension type: essential hypertension Atherosclerosis of [place] coronary artery of [place] heart without angina pectoris I25.10 Coronary Disease-Associated Artery/Lesion type: [place] artery [place] vs. transplanted heart: [place] heart Associated angina: without angina Ischemic cardiomyopathy I25.5 Pure hypercholesterolemia E78.00 History of breast cancer Z85.3 Age-related osteoporosis without current pathological fracture M81.0 Generalized anxiety disorder F41.1 Additional Codes PHQ-9 - 48105 - PHQ-9 Billing: Yes ([id number])
[2024-03-05 10:22] VITALS: BP 120/82; PULSE 88; O2SAT 98; BMI 36.2
== END 2024-03-05 11:03 | disposition home or self-care (01) ==
PROVIDERS: PCP Internal Medicine; Visit Provider Internal Medicine
DX: Z00.00 Encounter for general adult medical examination without abnormal findings (principal); E66.9 Obesity, unspecified; I10 Essential (primary) hypertension; Z68.36 Body mass index [BMI] 36.0-36.9, adult; I25.10 Atherosclerotic heart disease of native coronary artery without angina pectoris; I25.5 Ischemic cardiomyopathy; E78.00 Pure hypercholesterolemia, unspecified; Z85.3 Personal history of malignant neoplasm of breast; M81.0 Age-related osteoporosis without current pathological fracture; F41.1 Generalized anxiety disorder; Z23 Encounter for immunization

== ENCOUNTER → 2024-03-05 10:20 | Outpatient (BNVA) | payer MEDICARE, MEDICAID, SELFPAY | PROVIDERS: PCP Internal Medicine; Visit Provider Internal Medicine | DX: Z00.00 Encounter for general adult medical examination without abnormal findings (principal); I25.10 Atherosclerotic heart disease of native coronary artery without angina pectoris; I10 Essential (primary) hypertension; E78.00 Pure hypercholesterolemia, unspecified; F41.1 Generalized anxiety disorder; M79.7 Fibromyalgia; E66.9 Obesity, unspecified; I25.5 Ischemic cardiomyopathy; M81.0 Age-related osteoporosis without current pathological fracture; Z23 Encounter for immunization; Z85.3 Personal history of malignant neoplasm of breast; Z68.36 Body mass index [BMI] 36.0-36.9, adult | CPT/HCPCS: 90471; 90656; 96127 ==

== ENCOUNTER 2024-07-18 14:29 | Outpatient (AMB) | payer MEDICARE, MEDICAID, SELFPAY ==
[2024-07-18 14:43] VITALS: BP 130/84; PULSE 66; O2SAT 97; BMI 30.1
--- NOTE | 2024-07-18 14:43 | A.OFFPC_ITS ---
Vital Signs 07/18/24 14:43 Height 5 ft 6 in Weight 186 lb 8 oz BMI 30.1 BP 130/84 Blood Pressure Location Lt brachial Position Sitting Pulse 66 Pulse Source Pulse Oximeter Pulse Oximetry (%) 97 Oxygen Delivery Method Room Air Intake Visit Reasons: Anxiety Med After School Program Teacher Required: No Accompanied by: Self / Same As Patient Allergies tetanus toxoid, adsorbed [Tetanus Toxoid,Adsorbed] Allergy (Intermediate, Verified 07/18/24 14:43) FLU LIKE SYMPTOMS Tetanus Allergy (Unknown, Verified 07/18/24 14:43) cold duloxetine [Cymbalta] Adverse Reaction (Unknown, Verified 07/18/24 14:43) not sure Medication List - Last Reconciled 07/18/24 by Dada Torres MD alprazolam 0.5 mg PO TID 90 days aspirin 81 mg PO DAILY atorvastatin 20 mg PO BEDTIME diclofenac sodium 1% (Arthritis Pain (diclofenac)) 4 grams topical QID hydralazine 50 mg PO TID loratadine 10 mg PO DAILY metoprolol succinate ER 50 mg PO DAILY hyywbnll-rin-ttlp-FA-vit K-lut 8 mg iron-400 mcg-50 mcg (Centrum Silver Women) 1 tab PO DAILY multivitamin 1 tab PO DAILY sacubitril-valsartan 24-26 mg (Entresto) 1 tab PO BID tramadol 50 mg PO TID PRN 90 days Tobacco use date assessed: 07/18/24 Fall risk assessment: 1 Fall in past year Last assessed Fall Risk: 07/18/24 Dental Screening Dental Screen Date: 07/18/24 Did you have a dental visit in the last 12 months?: Yes Did you have a dental problem in the last 6 months where you did not have access to dental care?: No Was dental information given to patient?: Patient has dentist [facility] Medical History (Updated 03/05/24 @ 10:59 by Dada Torres MD) Hypercholesterolemia Pure hypercholesterolemia Ischemic cardiomyopathy Colonoscopy refused Raynauds disease Rosacea Hypertension Obesity (BMI 30-39.9) Varicose veins of anus or rectum Fibromyalgia History of breast cancer Osteoarthritis Surgical History Hx of breast augmentation History of tubal ligation History of cone biopsy of uterine cervix History of mastectomy Family History Father Angina pectoris Past heart attack Mother Diabetes Stroke CVD (cardiovascular disease) Social History Housing: Apartment Alcohol intake: current Alcohol intake frequency: holidays/special occasions only Comment: once a month beer Patient Tobacco Use Status: Never used Tobacco e-Cigarette/Vaping Use: Never Used Second Hand Smoke Exposure: No service: No Current occupational status: disabled Cognitive needs: No Hearing needs: No Vision needs: Yes Questionnaire PHQ-9 Over the last 2 weeks, how often have you been bothered by any of the following problems? 1. Little interest or pleasure in doing things: not at all 2. Feeling down, depressed, or hopeless: not at all 3. Trouble falling or staying asleep, or sleeping too much: more than half the days 4. Feeling tired or having little energy: several days 5. Poor appetite or overeating: not at all 6. Feeling bad about yourself - or that you are a failure or have let yourself or your family down: not at all 7. Trouble concentrating on things, such as reading the newspaper or watching television: not at all 8. Moving or speaking so slowly that other people could have noticed. Or the opposite - being so fidgety or restless that you have been moving around a lot more than usual: not at all 9. Thoughts that you would be better off or of hurting yourself in some way: not at all Total score: 3 Source: Developed by Drs. Neil Banda, Gloria Yuen, Andrae Farfan and colleagues, with an educational dudley from [employer] [place]. Thrive Questionnaire Date Thrive assessed: 07/18/24 I am a: Patient What is your living situation today?: I have a steady place to live Within the past 12 months, did the food you bought not last and you didn't have the money to get more?: Never true Within the past 12 months, did you worry whether your food would run out before you got money to buy more?: Never true Do you have trouble paying for medicines?: No Do you have trouble getting transportation to medical appointments?: No Do you have trouble paying your heating and electricity bill?: No Do you have trouble taking care of your child, family member or friend?: I choose not to answer this question Do you have trouble with day-to-day activities such as bathing, preparing meals, shopping, managing finances, etc.?: No Are you currently unemployed and looking for a job?: No Are you interested in more education?: No Please select the resources that you would like help with: None Currently or been in a relationship where the following occur: No concerns reported THRIVE Score: 0 AUDIT C Alcohol Use Questionnaire (AUDIT-C) 1. How often do you have a drink containing alcohol?: Monthly or less 2. How many drinks containing alcohol do you have on a typical day when you are drinking?: 1 or 2 3. How often do you have six or more drinks on one occasion?: Never Total Score: 1 AMITA-7 AMB Questionnaire AMITA-7 Date AMITA - 7 assessed: 07/18/24 Feeling nervous, anxious, or on edge: 3 = Nearly every day Not being able to stop or control worryin = Nearly every day Worrying too much about different things: 3 = Nearly every day Trouble relaxin = Several days Being so restless that it is hard to sit still: 0 = Not at all Becoming easily annoyed or irritable: 1 = Several days Feeling afraid as if something awful might happen: 1 = Several days Total AMITA-7 score (0-4 normal; 5-9 mild; 10-14 moderate; 15-21 severe): 12 Source: Developed by Drs. Neil Banda, Gloria Yuen, Andrae Farfan and colleagues, with an educational dudley from [employer] [place]. Physical exam (Primary Care) Vital Signs: Last Vital Signs Pulse 66 07/18/24 14:43 BP 130/84 07/18/24 14:43 Pulse Ox 97 07/18/24 14:43 Oxygen Delivery Method Room Air 07/18/24 14:43 BMI result Body Mass Index 30.1 Tobacco/Smoking Status: Tobacco use Status Tobacco use date assessed 07/18/24 07/18/24 14:45 Patient Tobacco Use Status Never used Tobacco 07/18/24 14:45 e-Cigarette/Vaping Use Never Used 07/18/24 14:45 PHQ-9: PHQ-9 Score PHQ-9: Total score 3 07/18/24 15:27 Thrive Assessment: Date of Thrive Assessment Date Thrive assessed 07/18/24 07/18/24 14:45 Currently or been in a relationship where the following occur: No concerns reported Const General: alert; No acute distress Eyes Conjunctivae: conjunctivae normal Resp Auscultation: clear to auscultation bilaterally Cardio Rate: regular rate Rhythm: regular rhythm GI Inspection: Yes normal to inspection Extrem General: Yes normal to inspection and No edema Coding Level of Care Code Est Pt Level 4 (05719) Complex EM visit Add On G2211 Diagnoses Obesity (BMI 30-39.9) E66.9 Essential hypertension I10 Hypertension type: essential hypertension Generalized anxiety disorder F41.1 Atherosclerosis of [place] coronary artery of [place] heart without angina pectoris I25.10 Associated angina: without angina Coronary Disease-Associated Artery/Lesion type: [place] artery [place] vs. transplanted heart: [place] heart Ischemic cardiomyopathy I25.5 Pure hypercholesterolemia E78.00 History of breast cancer Z85.3 Assessment & Plan Assessment & Plan (1) Obesity (BMI 30-39.9): Code(s): E66.9 - Obesity, unspecified Category: Medical Plan: Continue with diet and exercise noted 38 lb weight loss (2) Hypertension: Code(s): I10 - Essential (primary) hypertension Category: Medical Qualifiers: Hypertension type: essential hypertension Qualified Code(s): I10 - Essential (primary) hypertension Plan: Continue with blood pressure medication. Decrease salt intake and exercise on metoprolol 50 mg once a day hydralazine 50 mg 3 times a day (3) Generalized anxiety disorder: Comment: Service NET., 03/01/2024 declined counseling Code(s): F41.1 - Generalized anxiety disorder Category: Medical Plan: Continue with present therapy (4) Coronary atherosclerosis: Comment: S/P anterior STEMI - Tx with PCI and ROBERTA to LAD on 02/24/2023; TTE 02/24/23 showed LVEF 35% with anterior hypokinesis Code(s): I25.10 - Atherosclerotic heart disease of [place] coronary artery without angina pectoris Category: Medical Qualifiers: Associated angina: without angina Coronary Disease-Associated Artery/Lesion type: [place] artery [place] vs. transplanted heart: [place] heart Qualified Code(s): I25.10 - Atherosclerotic heart disease of [place] coronary artery without angina pectoris Plan: Control the cholesterol, weight, blood pressure, continue beta otilia hydralazine (5) Ischemic cardiomyopathy: Code(s): I25.5 - Ischemic cardiomyopathy Category: Medical Plan: Patient is on Entresto. (6) Pure hypercholesterolemia: Code(s): E78.00 - Pure hypercholesterolemia, unspecified Category: Medical Plan: Cholesterol plan on atorvastatin 20 mg at bedtime (7) History of breast cancer: Comment: Two thousand three Code(s): Z85.3 - Personal history of malignant neoplasm of breast Category: Medical Plan: Patient is recommended to continue on with mammograms Plan History of Present Illness The patient is a 68-year-old female presenting for follow-up on her chronic medical conditions, including hypertension and hypercholesterolemia. She reports a 38-pound weight loss since February and a history of breast cancer treated in 2002. The patient's last reported blood glucose level was 139 mg/dL in 2022. Her current medications include metoprolol, hydralazine, atorvastatin, Entresto, and tramadol for arthritis pain management. Concerns include her elevated blood pressure and some elevation in blood glucose levels. She is up to date with bone density testing and has declined a colonoscopy. 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 Tramadol will be managed as needed for arthritis-related pain. We discussed the importance of annual blood work to monitor her condition and side effects from medications. She's recommended to follow up with her mammogram as due and consider the shingles vaccine given her age. Colonoscopy remains declined, but alternatives such as Cologuard were discussed. Patient was informed and verbally consented to the use of an ambient scribe for clinic note documentation during this visit. Discussion Notes During our conversation, I emphasized the importance of continuing her current medications while considering the introduction of a more regularized anxiety medication regimen. We discussed the necessity of annual blood work due to her current health conditions and medication use. Consent and discussion around vaccinations were held, with emphasis on updating her shingles vaccine. The patient was reminded to comply with her mammogram schedule. Although a colonoscopy was declined, I discussed possible alternative methods for colorectal screening like Cologuard. Consideration of her social circumstances, including transportation challenges and caregiving duties, was accounted for in planning her care. Patient Instructions - Continue taking metoprolol, hydralazine, atorvastatin, and Entresto as prescribed. - Use tramadol for pain management as needed. - Schedule a blood work appointment and ensure fasting before the test. - Plan and attend your scheduled mammogram. - Consider getting a shingles vaccine. - Discuss further the possibility of alternative colorectal screening like Cologuard if a colonoscopy is declined. - Maintain a healthy diet and continue with current weight management activities.
--- OUTSIDE RECORDS SUMMARY | 2024-07-18 15:16 | XMS_ITS | Encounter Summary ---
Author Organization [facility] Address [address] [place] [address] Care Team Providers Care Spd Manager Name Role Phone Dada Torres MD Primary Care Provider [phone] Reason for Visit * Reason Onset Date Comments Med Refill 07/11/2024 Metoprolol and P lavix Encounter Details Date Type Department Care Team ([facility] st Contact Info) Description 07/11/2024 Telephone [facility] [address] [place] [id number] Adria Burt MD [address] [place] [address] [address] [place] [address] Med Refill (Metoprolol and Plavix) Social History Tobacco Use Types Packs/Day Years Used Date Smoking Tobacco: Never Smokeless Tobacco: Never Alcohol Use Standard Drinks/Week Comments Not Currently 0 (1 standard drink = 0.6 oz pur e alcohol) Comments Unknown Sex and Gender Information Value Date Recorded Sex Assigned at Not on file Legal Sex Female 8:48 PM EST Gender Identity Not on file Sexual Orientation Not on file documented as of this encounter Ordered Prescriptions Prescription Sig Dispense Quantity Refills Last Filled Start Date End Date metoprolol succinate (TOPROL-XL) 100 mg 24 hr tablet Take 0.5 tablets (50 mg total) by mouth 1 (one) time each day. 45 tablet 1 07/11/2024 documented in this encounter Progress Notes * Kathie Cloud RN - 07/12/2024 8:35 AM EDT I spoke to Pati and informed her of the below message. She is aware she may stop Plavix now. Med module updated. * Cristina Hahn NP - 07/11/2024 11:10 PM EDT Yes ok to stop Plavix now. Cristina Salgado * Kathie Cloud RN - 07/11/2024 3:22 PM EDT [place] 01/02/24, next 07/29/24. I spoke to Pati and she confirmed she takes Metoprolol ER 50 mg daily.Refills sent. Her last note from 01/02/24 mentioned she needs to continue Plavix until the end of the year. May she discontinue Plavix at this time? She has 6 tablets left. * Martina Jacome - 07/11/2024 3:15 PM EDT Patient called requesting refill for Metoprolol 100 mg two tablets daily, and Clopidogrel 75 mg onetablet daily. Please send 90 day supply to [facility] on [facility]. documented in this encounter Plan of Treatment Upcoming Encounters Date Type Department Care Team (Late st Contact Info) Description 07/29/2024 2:00 PM EDT Office Visit [facility] [address] [place] [address] Adria Burt MD [address] [place] [address] [address] [place] [address] documented as of this encounter Visit Diagnoses Not on filedocumented in this encounter Discontinued Medications Medication Sig Discontinue Reason Start Date End Da te metoprolol succinate (TOPROL-XL) 100 mg 24 hr tablet Take 0.5 tablets (50 mg total) by mouth 1 (one) time each day. Reorder 07/11/2024 clopidogreL (PLAVIX) 75 mg tablet Take 1 tablet (75 mg total) by mouth 1 (one) time each day. Prescriber Discontinued 01/02/2024 07/12/2024 documented as of this encounter Historical Medications * This list may reflect changes made after this encounter. metoprolol succinate (TOPROL-XL) 100 mg 24 hr tablet Take 0.5 tablets (50 mg total) by mouth 1 (one) time each day. 07/11/2024 clopidogreL (PLAVIX) 75 mg tablet Take 1 tablet (75 mg total) by mouth 1 (one) time each day. 01/02/2024 07/12/2024 added in this encounter Care Teams Spd Manager Relationship Specialty Start Date End Date Dada Torres MD [address] [place] [address] [address] [facility] [place] [address] PCP - General 01/02/24 documented as of this encounter
--- OUTSIDE RECORDS SUMMARY | 2024-07-18 15:16 | XMS_ITS | Clinical Summary ---
Author Organization [facility] Address [address] [place] [address] Care Team Providers Care Kitchen Worker Name Role Phone Dada Torres MD Primary Care Provider [phone] Medications sacubitriL-vals jacob (Entresto) 24-26 mg per tablet Take 1 tablet by mouth 2 (two) times a day. 180 tablet 1 5 Active metoprolol succinate (TOPROL-XL) 100 mg 24 hr tablet Take 0.5 tablets (50 mg total) by mouth 1 (one) time each day. 45 tablet 1 5 Active clopidogreL (PLAVIX) 75 mg tablet Take 1 tablet (75 mg total) by mouth 1 (one) time each day. 4 07/13/19 25 Discontinu ed(Prescri sue Discontinu ed) metoprolol succinate (TOPROL-XL) 100 mg 24 hr tablet Take 0.5 tablets (50 mg total) by mouth 1 (one) time each day. 07/12/19 25 Discontinu ed(Reorder ) Encounters Date Type Department Care Team Description 07/11/2024 Telephone [facility] [address] [facility] [address] [place] [address] Adria Burt MD Med Refill (Metoprolol and Plavix) 05/24/2024 Telephone [facility] [address] [facility] [address] [place] [address] Adria Burt MD Med Refill from Last 3 Months Medical History Medical History Date Comments Raynaud's disease DX:Raynaud's d isease Rosacea DX:Rosacea Varicose veins of anus or rectum DX:Varicose veins of anus or rectum Osteoarthritis DX:Osteoarthriti s Breast cancer (CMS/HCC V24, CMS/HCC V28) DX:Breast cancer (HCC) Obesity (BMI 30-39.9) DX:Obesity (BMI 30-39.9) Fibromyalgia DX:Fibromyalgia Family History Medical History Relation Name Comments Other: ANGINA PECTORIS Father Other: HEART ATTACK Father Diabetes Mother Other: CVD Mother Stroke Mother Relation Name Status Comments Father Mother Social History Tobacco Use Types Packs/Day Years Used Date Smoking Tobacco: Never Smokeless Tobacco: Never Alcohol Use Standard Drinks/Week Comments Not Currently 0 (1 standard drink = 0.6 oz pur e alcohol) Comments Unknown Sex and Gender Information Value Date Recorded Sex Assigned at Not on file Legal Sex Female 8:48 PM EST Gender Identity Not on file Sexual Orientation Not on file Obstetrics History Last Filed Vital Signs Vital Sign Reading Time Taken Comments Blood Pressure 122/60 01/02/2024 10:01 AM EDT Sitting R Arm Pulse 91 01/02/2024 10:01 AM EDT Temperature - - Respiratory Rate - - Oxygen Saturation - - Inhaled Oxygen Concentration - - Weight 86 kg (189 lb 11.2 oz) 10:01 AM EDT Height 167.6 cm (5' 6 ) 01/02/2024 10:0 1 AM EDT Body Mass Index 30.62 01/02/2024 10:01 AM EDT Plan of Treatment Upcoming Encounters Date Type Department Care Team (Late st Contact Info) Description 07/29/2024 2:00 PM EDT Office Visit [facility] [place] [address] [place] [address] Adria Burt MD [address] [place] [address] [address] [place] [address] Health Maintenance Due Date Last Done Comments Breast Cancer Screening 1955 COVID-19 Vaccine (#1) 1958 DTaP,Tdap,and Td Vaccines (1 - Tdap) 1972 Pneumococcal Vaccine: 50+ Ye ars (1 of 1 - PCV) 10/23/2003 Zoster Vaccines (1 of 2) 10/23/2003 RSV Immunization Adult Patie nts (1 - Risk 60-74 years 1-dose series) 2013 Cholesterol Screening (Lipid Panel) 04/07/2023 Colorectal Cancer Screening: Colonoscopy 04/07/2023 Depression Screening 04/07/2023 Falls Risk Assessment 04/07/2023 Hepatitis C Screening 04/07/2023 Medicare Annual Wellness Visit 04/07/2023 Osteoporosis Screening (Bone Density Screening) 04/07/2023 Social Influencers of Health Screening 04/07/2023 Hypertension/CHF/CAD Annual BMP Blood Test 04/15/2023 Influenza Vaccine (Season Ended) 2024 HIB Vaccines Aged Out No longer eligi ble based on patient's age to complete this topic HPV Vaccines Aged Out No longer eligi ble based on patient's age to complete this topic Hepatitis A Vaccines Aged Out No long er eligible based on patient's age to complete this topic Hepatitis B Vaccines Aged Out No long er eligible based on patient's age to complete this topic IPV Vaccines Aged Out No longer eligi ble based on patient's age to complete this topic MMR Vaccines Aged Out No longer eligi ble based on patient's age to complete this topic Meningococcal ACWY Vaccine Aged Out N o longer eligible based on patient's age to complete this topic Meningococcal B Vaccine Aged Out No l onger eligible based on patient's age to complete this topic RSV Immunization Patients Un ric 20 months Aged Out No longer eligible b ased on patient's age to complete this topic Varicella Vaccines Aged Out No longer eligible based on patient's age to complete this topic Insurance MEDICARE MEDICAID - [place] Care Teams Kitchen Worker Relationship Specialty Start Date End Date Dada Torres MD [address] [place] [address] Dr [address] [facility] [place] [address] PCP - General 01/02/24
== END 2024-07-18 15:40 | disposition home or self-care (01) ==
LOC: HO.HMCH 14:29
PROVIDERS: PCP Internal Medicine; Visit Provider Internal Medicine
DX: I10 Essential (primary) hypertension (principal); E66.9 Obesity, unspecified; Z68.30 Body mass index [BMI] 30.0-30.9, adult; F41.1 Generalized anxiety disorder; I25.10 Atherosclerotic heart disease of native coronary artery without angina pectoris; I25.5 Ischemic cardiomyopathy; E78.00 Pure hypercholesterolemia, unspecified; Z85.3 Personal history of malignant neoplasm of breast

== ENCOUNTER → 2024-07-18 14:29 | Outpatient (BNVA) | payer MEDICARE, MEDICAID, SELFPAY | PROVIDERS: PCP Internal Medicine; Visit Provider Internal Medicine | DX: I10 Essential (primary) hypertension (principal); F41.1 Generalized anxiety disorder; I25.10 Atherosclerotic heart disease of native coronary artery without angina pectoris; I25.5 Ischemic cardiomyopathy; E78.00 Pure hypercholesterolemia, unspecified; E66.9 Obesity, unspecified; Z68.30 Body mass index [BMI] 30.0-30.9, adult; Z85.3 Personal history of malignant neoplasm of breast; Z71.3 Dietary counseling and surveillance | CPT/HCPCS: 99212 ==

== ENCOUNTER 2024-09-18 13:39 | Outpatient (REF) | payer MEDICARE, MEDICAID, SELFPAY ==
--- NOTE | ~2024-09-18 | XR_ITS ---
EXAMINATION: XR HIP, RIGHT CLINICAL INFORMATION: M25.551 - Pain in right hip COMPARISON: August 03, 2016 TECHNIQUE: AP and oblique views of the right hip. FINDINGS: Sclerosis and the articular surfaces of the acetabulum and femoral head with subchondral cyst formation and asymmetric joint space narrowing of the coxofemoral joint. No acute cortical disruption or malalignment No lytic or blastic lesions.. XR/XR hip RT min 2V IMPRESSION: Moderate osteoarthrosis, right hip. Electronically signed by: Loiue Puga MD 09/18/2024 02:16 PM EDT
[2024-09-18 13:53] LABS: MANUAL DIFF FLAG NO
[2024-09-18 14:14] LABS: Hematocrit 40.7 % (37.0-47.0); Hemoglobin 13.5 g/dl (12.0-16.0); Imm Gran Abs Auto 0.02 X10*3/uL (0.00-0.03); Imm Gran Pct Auto 0.4 % (0.0-0.4); Lymphocytes Absolute Auto 1.6 X10*3/uL (1.2-4.9); Mean Corpuscular HGB Conc 33.2 g/dl (31.0-35.0); Mean Corpuscular Hemoglobin 34.5 pg (27.0-33.0); Mean Corpuscular Volume 104.1 fL (80.0-98.0); NRBC Abs Auto 0.000 X10*3/uL (0.0-0.012); NRBC Pct Auto 0.0 /100WBC (0.0-0.2); Platelet Count 221 X10*3/uL (160-400); Red Blood Count 3.91 X10*6/uL (4.20-5.50); White Blood Count 5.0 X10*3/uL (4.8-10.8)
--- OUTSIDE RECORDS SUMMARY | 2024-09-18 14:29 | XMS_ITS | Clinical Summary ---
Author Organization [facility] [employer] Address [address] [facility] [place] [address] Phone Care Team Providers Care [employer] Lieutenant Name Role Phone Dada Torres MD Primary Care Provider Allergies Active Allergy Reactions Criticality Noted Date Comments Tetanus Vaccines And Toxoid 07/30/19 25 Arm swelling Medications sacubitriL-valsa rtan (Entresto) 24-26 mg per tablet Take 1 tablet by mouth 2 (two) times a day. 180 tablet 1 5 Active metoprolol succinate (TOPROL-XL) 100 mg 24 hr tablet Take 0.5 tablets (50 mg total) by mouth 1 (one) time each day. 45 tablet 1 5 Active aspirin 81 mg EC tablet Take 1 tablet (81 mg total) by mouth 1 (one) time each day. Active rosuvastatin (CRESTOR) 20 mg tablet Take 1 tablet (20 mg total) by mouth 1 (one) time each day. Active loratadine (CLARITIN REDITABS) 10 mg dispersible tablet Take 1 tablet (10 mg total) by mouth 1 (one) time each day. Active LORazepam (ATIVAN) 0.5 mg tablet Take 1 tablet (0.5 mg total) by mouth 3 (three) times a day if needed for anxiety. Max Daily Amount: 1.5 mg Active traMADoL (ULTRAM) 50 mg tablet Take 1 tablet (50 mg total) by mouth at bedtime. Max Daily Amount: 50 mg Active diclofenac (VOLTAREN) 1 % topical gel Apply topically if needed. Active Encounters Date Type Department Care Team Description 07/29/2024 2:00 PM EDT Office Visit [facility] Cardiology [facility] [address] [place] [address] Adria Burt MD Atherosclerosis of [place] coronary artery of [place] heart without angina pectoris (Primary Dx) 07/11/2024 Telephone [facility] Cardiology [facility] [address] [place] [address] Adria Burt MD Med Refill (Metoprolol and Plavix) from Last 3 Months Medical History Medical [...] Sign Reading Time Taken Comments Blood Pressure 122/80 07/29/2024 2:23 PM EDT Pulse 47 07/29/2024 2:23 PM EDT Temperature - - Respiratory Rate - - Oxygen Saturation 98% 07/29/2024 2:23 PM EDT Inhaled Oxygen Concentration - - Weight 84.6 kg (186 lb 6.4 oz) 07/29/2024 2:23 P M EDT Height 167.6 cm (5' 6 ) 07/29/2024 2:23 PM EDT Body Mass Index 30.09 07/29/2024 2:23 PM EDT Plan of Treatment Health Maintenance Due Date Last Done Comments Breast Cancer Screening 1955 DTaP,Tdap,and Td Vaccines (1 - Tdap) 1972 Zoster Vaccines (1 of 2) 1972 COVID-19 Vaccine (3 - Pfizer risk series) 06/13/2020 05/16/2020, 04/25/2020 Cholesterol Screening (Lipid Panel) 04/07/2023 Colorectal Cancer Screening: Colonoscopy 04/07/2023 Depression Screening 04/07/2023 Falls Risk Assessment 04/07/2023 Hepatitis C Screening 04/07/2023 Medicare Annual Wellness Visit 04/07/2023 Osteoporosis Screening (Bone Density Screening) 04/07/2023 Social Influencers of Health Screening 04/07/2023 Hypertension/CHF/CAD Annual BMP Blood Test 04/15/2023 Influenza Vaccine (#1) 2024 03/05/2024 RSV Immunization Adult Patients (1 - 1-dose 75+ series) 2028 Pneumococcal Vaccine: 50+ Years Completed 10/24/2022 HIB Vaccines Aged Out No longer eligi [...] to complete this topic RSV Immunization Patients Under 20 months Aged Out No longer eligible b ased on patient's age to complete this topic Varicella Vaccines Aged Out No longer eligible based on patient's age to complete this topic Procedures Procedure Name Priority Date/Time Associated Diagnosis Comments ECG 12-LEAD Routine 07/29/2024 2:34 PM EDT Atherosclerosis of [place] coronary artery of [place] heart without angina pectoris from Last 3 Months Results * ECG 12 lead (07/29/2024 2:34 PM EDT) Ventricular Rate ECG 47 BPM GEMUSE Atrial Rate 47 BPM GEMUSE P-R Interval 186 ms GEMUSE QRS Duration 90 ms GEMUSE Q-T Interval 446 ms GEMUSE QTc 394 ms GEMUSE P Wave Emma 16 degrees GEMUSE R Emma 67 degrees GEMUSE T Emma 50 degrees GEMUSE ECG Interpretation Sinus bradycardia Otherwise normal ECG No previous ECGs available Confirmed by Alize BURT JAMES ([id number]) on 07/29/2024 5:17:49 PM GEMUSE 07/29/2024 2:34 PM EDT 07/29/2024 5:17 PM EDT us Adria Burt MD ECG ORDERABLES Final Result GEMUSE from Last 3 Months Insurance MEDICARE MEDICAID - [place] Care Teams [employer] Lieutenant Relationship Specialty Start Date End Date Dada Torres MD [address] [place] [address] [address] [facility] [place], [place] [id number] [facility] - General 01/02/24
[2024-09-18 14:45] LABS: B Type Natriuretic Peptide 64 pg/mL (<100)
[2024-09-18 14:57] LABS: Alanine Aminotransferase 29 U/L (0-31); Albumin Level 4.6 g/dL (3.5-5.0); Alkaline Phosphatase 103 U/L (39-117); Anion Gap 13 (12-20); Aspartate Amino Transferase 35 U/L (5-31); Blood Urea Nitrogen 13 mg/dL (9-16); Calcium 9.4 mg/dL (8.4-10.2); Carbon Dioxide 27 mmol/L (22-29); Chloride 102 mmol/L (96-108); Cholesterol 217 mg/dL (<200); Estimated Glomerular Filt Rate 34; HDL Cholesterol 81 mg/dL (>40); Potassium 4.0 mmol/L (3.3-5.1); Sodium 138 mmol/L (135-145); Total Protein 7.2 g/dL (6.5-8.0); Triglycerides 184 mg/dL (<150)
[2024-09-18 15:11] LABS: Free T4 (Free Thyroxine) 1.03 ng/dL (0.71-1.85); Thyroid Stimulating Hormone 2.06 uIU/mL (0.32-4.0)
[2024-09-18 15:14] LABS: Folate 9.2 ng/mL (> or = 4.0); Vitamin B12 208 pg/mL (200-900)
== END 2024-09-18 13:40 | disposition home or self-care (01) ==
LOC: HO.XRAY 13:39
PROVIDERS: PCP Internal Medicine; Visit Provider Internal Medicine
DX: M89.49 Other hypertrophic osteoarthropathy, multiple sites (principal); I25.5 Ischemic cardiomyopathy; I25.10 Atherosclerotic heart disease of native coronary artery without angina pectoris; E78.00 Pure hypercholesterolemia, unspecified; M25.551 Pain in right hip
CPT/HCPCS: 36415; 73502; 80053; 80061; 82306; 82607; 82746; 83880; 84439; 84443; 85025; 85652

== ENCOUNTER → 2024-09-18 13:56 | Outpatient (BNV) | payer MEDICARE, MEDICAID, SELFPAY | PROVIDERS: PCP Internal Medicine; Visit Provider Radiology Diagnostic Radiology | DX: M16.11 Unilateral primary osteoarthritis, right hip (principal) | CPT/HCPCS: 73502 ==

== ENCOUNTER 2024-11-05 15:38 | Outpatient (AMB) | payer MEDICARE, MEDICAID, SELFPAY ==
[2024-11-05 15:40] VITALS: BP 138/88; PULSE 68; TEMP 36.1; O2SAT 97; BMI 29.4
--- NOTE | 2024-11-05 15:40 | A.OFFPC_ITS ---
Vital Signs 11/05/24 15:40 Height 5 ft 6 in Weight 182 lb BMI 29.4 BP 138/88 Blood Pressure Location Rt brachial Position Sitting Pulse 68 Pulse Source Pulse Oximeter Temp 97.0 F Temp Source Temporal Artery Scan Pulse Oximetry (%) 97 Oxygen Delivery Method Room Air Intake Visit Reasons: 3mth f/u Allergies tetanus toxoid, adsorbed (Tetanus Toxoid,Adsorbed) Allergy (Intermediate, Verified 11/05/24 15:40) FLU LIKE SYMPTOMS Tetanus Allergy (Unknown, Verified 11/05/24 15:40) cold duloxetine (Cymbalta) Adverse Reaction (Unknown, Verified 11/05/24 15:40) not sure Medication List - Last Reconciled 11/05/24 by Dada Torres MD alprazolam 0.5 mg PO TID 90 days aspirin 81 mg PO DAILY atorvastatin 20 mg PO BEDTIME cholecalciferol (vitamin D3) 50 mcg PO DAILY 90 days cyanocobalamin (vitamin B-12) 1,000 mcg PO DAILY diclofenac sodium 1% (Arthritis Pain (diclofenac)) 4 grams topical QID hydralazine 50 mg PO TID loratadine 10 mg PO DAILY metoprolol succinate ER 50 mg PO DAILY lchmgduz-kvt-xhwf-FA-vit K-lut 8 mg iron-400 mcg-50 mcg (Centrum Silver Women) 1 tab PO DAILY multivitamin 1 tab PO DAILY sacubitril-valsartan 24-26 mg (Entresto) 1 tab PO BID tramadol 50 mg PO TID PRN 90 days Tobacco use date assessed: 11/05/24 Fall risk assessment: 2 + Falls in past year Last assessed Fall Risk: 11/05/24 Dental Screening Dental Screen Date: 11/05/24 Did you have a dental visit in the last 12 months?: No Did you have a dental problem in the last 6 months where you did not have access to dental care?: No Was dental information given to patient?: Patient has dentist [facility] Medical History Hypercholesterolemia Pure hypercholesterolemia Ischemic cardiomyopathy Colonoscopy refused Raynauds disease Rosacea Hypertension Obesity (BMI 30-39.9) Varicose veins of anus or rectum Fibromyalgia History of breast cancer Osteoarthritis Surgical History Hx of breast augmentation History of tubal ligation History of cone biopsy of uterine cervix History of mastectomy Family History Father Angina pectoris Past heart attack Mother Diabetes Stroke CVD (cardiovascular disease) Social History Housing: Apartment Alcohol intake: current Alcohol intake frequency: holidays/special occasions only Comment: once a month beer Patient Tobacco Use Status: Never used Tobacco e-Cigarette/Vaping Use: Never Used Second Hand Smoke Exposure: No service: No Current occupational status: disabled Cognitive needs: No Hearing needs: No Vision needs: Yes Questionnaire PHQ-9 Over the last 2 weeks, how often have you been bothered by any of the following problems? 1. Little interest or pleasure in doing things: not at all 2. Feeling down, depressed, or hopeless: not at all 3. Trouble falling or staying asleep, or sleeping too much: more than half the days 4. Feeling tired or having little energy: several days 5. Poor appetite or overeating: not at all 6. Feeling bad about yourself - or that you are a failure or have let yourself or your family down: not at all 7. Trouble concentrating on things, such as reading the newspaper or watching television: not at all 8. Moving or speaking so slowly that other people could have noticed. Or the opposite - being so fidgety or restless that you have been moving around a lot more than usual: not at all 9. Thoughts that you would be better off or of hurting yourself in some way: not at all Total score: 3 Source: Developed by Drs. Neil Banda, Gloria Yuen, Andrae Farfan and colleagues, with an educational dudley from [employer]. Thrive Questionnaire Date Thrive assessed: 07/18/24 I am a: Patient What is your living situation today?: I have a steady place to live Within the past 12 months, did the food you bought not last and you didn't have the money to get more?: Never true Within the past 12 months, did you worry whether your food would run out before you got money to buy more?: Never true Do you have trouble paying for medicines?: No Do you have trouble getting transportation to medical appointments?: No Do you have trouble paying your heating and electricity bill?: No Do you have trouble taking care of your child, family member or friend?: I choose not to answer this question Do you have trouble with day-to-day activities such as bathing, preparing meals, shopping, managing finances, etc.?: No Are you currently unemployed and looking for a job?: No Are you interested in more education?: No Please select the resources that you would like help with: None Currently or been in a relationship where the following occur: No concerns reported THRIVE Score: 0 AUDIT C Alcohol Use Questionnaire (AUDIT-C) 1. How often do you have a drink containing alcohol?: Monthly or less 2. How many drinks containing alcohol do you have on a typical day when you are drinking?: 1 or 2 3. How often do you have six or more drinks on one occasion?: Never Total Score: 1 AMITA-7 AMB Questionnaire AMITA-7 Date AMITA - 7 assessed: 07/18/24 Feeling nervous, anxious, or on edge: 3 = Nearly every day Not being able to stop or control worryin = Nearly every day Worrying too much about different things: 3 = Nearly every day Trouble relaxin = Several days Being so restless that it is hard to sit still: 0 = Not at all Becoming easily annoyed or irritable: 1 = Several days Feeling afraid as if something awful might happen: 1 = Several days Total AMITA-7 score (0-4 normal; 5-9 mild; 10-14 moderate; 15-21 severe): 12 Source: Developed by Drs. Neil Banda, Gloria Yuen, Andrae Farfan and colleagues, with an educational dudley from [employer]. Physical exam (Primary Care) Vital Signs: Last Vital Signs Temp 97.0 F 11/05/24 15:40 Pulse 68 11/05/24 15:40 BP 138/88 11/05/24 15:40 Pulse Ox 97 11/05/24 15:40 Oxygen Delivery Method Room Air 11/05/24 15:40 BMI result Body Mass Index 29.4 Tobacco/Smoking Status: Tobacco use Status Tobacco use date assessed 11/05/24 11/05/24 15:46 Patient Tobacco Use Status Never used Tobacco 11/05/24 15:46 e-Cigarette/Vaping Use Never Used 11/05/24 15:46 PHQ-9: PHQ-9 Score PHQ-9: Total score 3 11/05/24 15:46 Thrive Assessment: Date of Thrive Assessment Date Thrive assessed 07/18/24 11/05/24 15:46 Currently or been in a relationship where the following occur: No concerns reported Const General: alert; No acute distress Eyes Conjunctivae: conjunctivae normal Resp Auscultation: clear to auscultation bilaterally Cardio Rate: regular rate Rhythm: regular rhythm GI Inspection: Yes normal to inspection Extrem General: Yes normal to inspection and No edema Coding Level of Care Code Est Pt Level 4 (53652) Complex EM visit Add On G2211 Diagnoses Atherosclerosis of [place] coronary artery of [place] heart without angina pectoris I25.10 Coronary Disease-Associated Artery/Lesion type: [place] artery [place] vs. transplanted heart: [place] heart Associated angina: without angina Ischemic cardiomyopathy I25.5 Pure hypercholesterolemia E78.00 Essential hypertension I10 Hypertension type: essential hypertension Overweight (BMI 25.0-29.9) E66.3 Colonoscopy refused Z53.20 Generalized anxiety disorder F41.1 History of breast cancer Z85.3 Vitamin B 12 deficiency E53.8 Vitamin D deficiency E55.9 Renal insufficiency N28.9 Assessment & Plan Assessment & Plan (1) Coronary atherosclerosis: Comment: S/P anterior STEMI - Tx with PCI and ROBERTA to LAD on 02/24/2023; TTE 02/24/23 showed LVEF 35% with anterior hypokinesis Code(s): I25.10 - Atherosclerotic heart disease of [place] coronary artery without angina pectoris Category: Medical Qualifiers: Coronary Disease-Associated Artery/Lesion type: [place] artery [place] vs. transplanted heart: [place] heart Associated angina: without angina Qualified Code(s): I25.10 - Atherosclerotic heart disease of [place] coronary artery without angina pectoris Plan: Control the cholesterol, weight, blood pressure, patient is on aspirin 81 mg once a day (2) Ischemic cardiomyopathy: Code(s): I25.5 - Ischemic cardiomyopathy Category: Medical Plan: Patient follows up with Cardiology and this has improved from the cardiology notes. (3) Pure hypercholesterolemia: Code(s): E78.00 - Pure hypercholesterolemia, unspecified Category: Medical Plan: Avoid fried foods, chicken skin, eggs, butter margarine, pastries and meat. Be it pork or beef they have a lot of cholesterol LDL goal of less than 70 and triglyceride of less than 150 on atorvastatin 20 mg once a day (4) Hypertension: Code(s): I10 - Essential (primary) hypertension Category: Medical Qualifiers: Hypertension type: essential hypertension Qualified Code(s): I10 - Essential (primary) hypertension Plan: Continue with blood pressure medication. Decrease salt intake and exercise patient takes hydralazine 50 mg 3 times a day metoprolol 50 mg once a day Entresto twice a day (5) Overweight (BMI 25.0-29.9): Code(s): E66.3 - Overweight Category: Medical Plan: Diet and exercise (6) Colonoscopy refused: Code(s): Z53.20 - Procedure and treatment not carried out because of patient's decision for unspecified reasons Category: Medical Plan: Patient is reminded about colonoscopy (7) Generalized anxiety disorder: Comment: Service NET., 03/01/2024 declined counseling Code(s): F41.1 - Generalized anxiety disorder Category: Medical Plan: Medication as needed (8) History of breast cancer: Comment: Two thousand three Code(s): Z85.3 - Personal history of malignant neoplasm of breast Category: Medical Plan: Patient is reminded about mammogram (9) Vitamin B 12 deficiency: Code(s): E53.8 - Deficiency of other specified B group vitamins Category: Medical (10) Vitamin D deficiency: Code(s): E55.9 - Vitamin D deficiency, unspecified Category: Medical (11) Renal insufficiency: Code(s): N28.9 - Disorder of kidney and ureter, unspecified Category: Medical Plan History of Present Illness The patient is a 69-year-old female presenting for a follow-up visit. She has a history of hypertension, managed with hydralazine, metoprolol, and Entresto, along with lifestyle modifications. The patient also has coronary artery disease with cardiomyopathy, treated with aspirin and atorvastatin, aiming for an LDL goal of less than 70 mg/dL. Her past medical history includes breast cancer diagnosed in 2002 and basal cell carcinoma on the forehead. She is advised to continue with mammograms and colonoscopies for preventative care. The patient has osteoporosis and generalized anxiety disorder, with a recent 4- pound weight loss. Recent lab results indicate macrocytosis and elevated renal function, with low vitamin D and B12 levels, contributing to easy bruising. Health Maintenance - Mammogram reminder - Colonoscopy reminder - Vitamin D supplementation advised - Vitamin B12 supplementation advised - Shingles vaccine recommended - Flu vaccine recommended for December Social History - Housing: Resides in an apartment with a back porch, stable housing situation for five years. - Family Status: Caring for who has undergone multiple surgeries and requires home care. - Transportation: Utilizes [employer] v[employer] for transportation due to lack of personal vehicle. - Nutrition: Reports eating TV dinners frequently due to caregiving responsibilities. Review of Systems - Cardiovascular: Reports bruising easily. Denies chest pain or palpitations. - Musculoskeletal: Reports no joint pain or stiffness. - Neurological: Denies headaches or dizziness. - Gastrointestinal: Denies nausea or vomiting. - Endocrine: Reports weight loss of 4 pounds. Physical Exam Results - Labs: Macrocytosis noted in blood work. - Labs: Elevated creatinine level at 1.53 mg/dL, previous level was 0.83 mg/dL. - Labs: LDL cholesterol at 100 mg/dL, goal is less than 70 mg/dL. - Labs: Low vitamin D and B12 levels. Plan Patient was informed and verbally consented to the use of an ambient scribe for clinic note documentation during this visit. 1. Hypertension The patient is on hydralazine, metoprolol, and Entresto for hypertension, with lifestyle modifications recommended. 2. Coronary Artery Disease With Cardiomyopathy Management includes aspirin and atorvastatin, aiming for LDL cholesterol less than 70 mg/dL. 3. Hypercholesterolemia Continue atorvastatin with a focus on achieving LDL cholesterol goal. 4. Renal Dysfunction Retesting of kidney function is planned due to elevated creatinine levels. 5. Vitamin D Deficiency Vitamin D supplementation is advised, with dietary and sun exposure as additional sources. 6. Vitamin B12 Deficiency Supplementation is recommended to address deficiency and support health. 7. Preventative Care Regular mammograms and colonoscopies are advised for preventative care. Discussion Notes During the visit, we discussed the importance of managing hypertension and coronary artery disease through medication and lifestyle changes. We also reviewed the need for regular monitoring of renal function and cholesterol levels, with a focus on achieving target LDL cholesterol levels. Preventative care measures, including mammograms and colonoscopies, were emphasized, along with the need for vitamin D and B12 supplementation. Patient Instructions - Continue taking prescribed medications for hypertension and coronary artery disease. - Follow a healthy diet and exercise regularly to support blood pressure and cholesterol management. - Schedule and attend regular mammograms and colonoscopies. - Take vitamin D and B12 supplements as prescribed. - Monitor for any changes in health and report them during follow-up visits. Orders: Orders Comprehensive Met. Panel Today E78.00 - Pure hypercholesterolemia, unspecified Thyroid Stimulating Hormone Today E78.00 - Pure hypercholesterolemia, unspecified Free T4 (Free Thyroxine) Today E78.00 - Pure hypercholesterolemia, unspecified Vitamin B12 and Folate Today E78.00 - Pure hypercholesterolemia, unspecified B Type Natriuretic Peptide Today I25.5 - Ischemic cardiomyopathy Hemoglobin A1c Today I25.5 - Ischemic cardiomyopathy UA CC w/rflx Micro + Cult Today I25.5 - Ischemic cardiomyopathy, R30.0 - Dysuria Medications: New cyanocobalamin (vitamin B-12) 1,000 mcg PO DAILY 30 caps 3RF E53.8 - Deficiency of other specified B group vitamins cholecalciferol (vitamin D3) 50 mcg PO DAILY 90 caps 3RF 90 days E55.9 - Vitamin D deficiency, unspecified
--- OUTSIDE RECORDS SUMMARY | 2024-11-05 16:28 | XMS_ITS | Clinical Summary ---
Author Organization [facility] [employer] Address [address] [facility] [place] [address] Phone Care Team Providers Care Cyber Security Instructor Name Role Phone Dada Torres MD Primary Care Provider [phone] Allergies Active Allergy Reactions Criticality Noted Date [...] topical gel Apply topically if needed. Active Medical History Medical History Date Comments Raynaud's [...] Panel) 04/07/2023 Colorectal Cancer Screening: Colonoscopy 04/07/2023 Falls Risk Assessment 04/07/2023 Hepatitis C Screening 04/07/2023 Medicare Annual Wellness Visit 04/07/2023 Osteoporosis Screening (Bone Density Screening) 04/07/2023 Social Influencers of Health Screening 04/07/2023 Hypertension/CHF/CAD Annual BMP Blood Test 04/15/2023 Depression Screening 03/13/2024 Influenza Vaccine (#1) 2024 03/05/2024 RSV Immunization [...] Insurance MEDICARE [place]ICA[place] - [place] Care Teams Cyber Security Instructor Relationship Specialty Start Date End Date Dada Torres MD [address] [place] [address] [address] [facility] [place] [address] PCP - General 01/02/24
== END 2024-11-05 16:47 | disposition home or self-care (01) ==
LOC: HO.HMCH 15:39
PROVIDERS: PCP Internal Medicine; Visit Provider Internal Medicine
DX: I25.10 Atherosclerotic heart disease of native coronary artery without angina pectoris (principal); I25.5 Ischemic cardiomyopathy; E78.00 Pure hypercholesterolemia, unspecified; I10 Essential (primary) hypertension; E66.3 Overweight; Z53.20 Procedure and treatment not carried out because of patient's decision for unspecified reasons; F41.1 Generalized anxiety disorder; Z85.3 Personal history of malignant neoplasm of breast; E53.8 Deficiency of other specified B group vitamins; E55.9 Vitamin D deficiency, unspecified; N28.9 Disorder of kidney and ureter, unspecified

== ENCOUNTER → 2024-11-05 15:38 | Outpatient (BNVA) | payer MEDICARE, MEDICAID, SELFPAY | PROVIDERS: PCP Internal Medicine; Visit Provider Internal Medicine | DX: I25.10 Atherosclerotic heart disease of native coronary artery without angina pectoris (principal); I25.5 Ischemic cardiomyopathy; I10 Essential (primary) hypertension; E78.00 Pure hypercholesterolemia, unspecified; E66.3 Overweight; F41.1 Generalized anxiety disorder; E53.8 Deficiency of other specified B group vitamins; E55.9 Vitamin D deficiency, unspecified; N28.9 Disorder of kidney and ureter, unspecified; Z85.3 Personal history of malignant neoplasm of breast | CPT/HCPCS: 99212 ==

== ENCOUNTER 2024-12-03 12:32 | Outpatient (REF) | payer MEDICARE, MEDICAID, SELFPAY ==
--- NOTE | ~2024-12-03 | MM_ITS ---
EXAMINATION: MM SCREENING DIGITAL BREAST TOMOSYNTHESIS, RIGHT CLINICAL INFORMATION: Screening. Asymptomatic. Personal history of left mastectomy for breast cancer. COMPARISON: November 29, 2022 TECHNIQUE: Digital breast tomosynthesis is performed in mediolateral oblique and craniocaudal views along with computer-aided detection (CAD). Synthesized 2D images are generated from the tomosynthesis. FINDINGS: BREAST COMPOSITION: There are scattered areas of fibroglandular density. RIGHT BREAST: No significant masses, suspicious calcifications or other abnormalities are seen. MM/MM tomosynthesis screening RT IMPRESSION: RIGHT BREAST: Negative, no mammographic evidence of malignancy. Normal interval follow-up is recommended in 12 months. ASSESSMENT: BI-RADS: Category 1: Negative RECOMMENDATION: Routine annual mammography screening. FOLLOW-UP: 1 year F/U This examination should not preclude the clinical evaluation of a suspicious palpable abnormality. This patient's information was entered into a reminder system with a target due date for their next mammogram. Electronically signed by: Marcel Birch MD 12/06/2024 12:29 PM EDT
--- NOTE | ~2024-12-03 | MM_ITS ---
EXAMINATION: BONE DENSITOMETRY CLINICAL INDICATION: Age-related osteoporosis.. COMPARISON: This is the patient's baseline examination. TECHNIQUE: Using a Mojeek dual-energy x-ray absorptiometry was performed of the lumbar spine and left hip. The images are of good technical quality. Summary results are attached. FINDINGS: AP SPINE L1-L4 BMD 1.608 g/cm2, Z-score 5.5, T-score 3.6, LEFT FEMUR, NECK: BMD 1.129 g/cm2, Z-score 2.5, T-score 0.7, LEFT FEMUR, TOTAL: BMD 1.092 g/cm2, Z-score 2.3, 11/29/2022 0.7,. IDENTIFIED RISK FACTORS: History of fracture. Secondary osteoporosis.. HISTORY OF FRACTURE: Fracture right leg. MEDICATIONS: Vitamin D and multiple vitamins.. MM/XR DEXA axial skeleton IMPRESSION: 1. DIAGNOSIS: Normal bone density based on the lowest T-score value of 0.7 in the femoral neck applying World Health Organization criteria. 2. 10-YEAR FRACTURE RISK PREDICTION, FRAX: 0 3. Treatment Recommendations: NOF guidelines recommend consideration for treatment in postmenopausal women and men age 50 and older presenting with the following: -A hip or vertebral (clinical or morphometric) fracture. -T-score less than or equal to -2.5 at the femoral neck or spine after appropriate evaluation to exclude secondary causes. -Low bone mass at the hip or spine and a 10-year fracture probability by FRAX of greater than or equal to 3% for hip fracture or greater than or equal to 20% for major osteoporotic fracture based on the [place] adapted WHO algorithm. 4. The T score of lumbar spine and left lower neck has improved since 11/29/2022. FUTURE SCAN RECOMMENDATION: People with diagnosed cases of osteoporosis or at high risk for fracture should have regular bone mineral density tests. For patients eligible for Medicare, routine testing is allowed once every 2 years. The testing frequency can be increased to one year for patients who have rapidly progressing disease, those who are receiving or discontinuing medical therapy to restore bone mass, or have additional risk factors. Electronically signed by: Efrain Delaney MD 12/03/2024 03:09 PM EDT
--- OUTSIDE RECORDS SUMMARY | 2024-12-03 15:22 | XMS_ITS | Clinical Summary ---
Author Organization [facility] [employer] Address [address] [place] [address] Phone Care Team Providers Care Vice President Process Name Role Phone Dada Torres MD Primary Care Provider [phone] Allergies Active Allergy Reactions Criticality Noted Date [...] Insurance MEDICARE [place] - [place] Care Teams Vice President Process Relationship Specialty Start Date End Date Dada Torres MD [address] [place] [address] [address] [facility] [place] [address] PCP - General 01/02/24
== END 2024-12-03 12:33 | disposition home or self-care (01) ==
LOC: HO.MAMMO 12:32
PROVIDERS: PCP Internal Medicine; Visit Provider Internal Medicine
DX: Z12.31 Encounter for screening mammogram for malignant neoplasm of breast (principal); M81.0 Age-related osteoporosis without current pathological fracture
CPT/HCPCS: 77063; 77067; 77080

== ENCOUNTER → 2024-12-03 13:00 | Outpatient (BNV) | payer MEDICARE, MEDICAID, SELFPAY | PROVIDERS: PCP Internal Medicine; Visit Provider Radiology Diagnostic Radiology | DX: E28.39 Other primary ovarian failure (principal) | CPT/HCPCS: 77080 ==

== ENCOUNTER 2025-01-28 14:06 | Outpatient (AMB) | payer MEDICARE, MEDICAID, SELFPAY ==
--- NOTE | 2025-01-28 14:22 | A.OFFVIS_ITS ---
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 She states that she had an injury when she was moving a book shelf to make room for a stretcher that was coming in for her and she fell in and hurt both hips and back and hit her left shoulder and her head. She states that she is having a lot of pain in her right hip and lower back. Patient notices that her pain is worse when she is walking and going up and down the stairs. 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 Robledo is a 69-year-old female who presents to the office today originally for evaluation of left hip pain since September of this year. Patient does endorse bilateral groin pain. However, most recently the patient has sustained a fall on 01/23/2025 when trying to move a book shelf. She fell directly landing onto the book shelf injuring her lower back and C-spine. At this time, these areas are the most bothersome for her. [facility] Medical History (Updated 01/28/25 @ 14:51 by Ramona Kiser PA-C) History of heart attack Hypercholesterolemia Pure hypercholesterolemia Ischemic cardiomyopathy Colonoscopy refused Raynauds disease Rosacea Hypertension Obesity (BMI 30-39.9) Varicose veins of anus or rectum Fibromyalgia History of breast cancer Osteoarthritis Surgical History Hx of breast augmentation History of tubal ligation History of cone biopsy of uterine cervix History of mastectomy Family History Father Angina pectoris Past heart attack Mother Diabetes Stroke CVD (cardiovascular disease) Social History Housing: Apartment Alcohol intake: current Alcohol intake frequency: holidays/special occasions only Comment: once a month beer Patient Tobacco Use Status: Never used Tobacco e-Cigarette/Vaping Use: Never Used Second Hand Smoke Exposure: No service: No Current occupational status: disabled Cognitive needs: No Hearing needs: No Vision needs: Yes Review of Systems Const All systems reviewed & are unremarkable except as noted in HPI and below Physical Exam Vital Signs: BMI result Body Mass Index 29.4 Const General: cooperative, healthy appearing and no acute distress Resp Effort & Inspection: normal respiratory effort and able to speak in complete sentences Extrem Other: Right/Left hip: Groin pain with internal and external rotation. No tenderness to palpation over the greater trochanteric bursa. Psych Appearance: grossly normal Mental Status: mental status grossly normal Attitude: cooperative Assessment & Plan Assessment & Plan (1) Osteoarthritis, hip, bilateral: Code(s): M16.0 - Bilateral primary osteoarthritis of hip Category: Medical Plan Ms. Robledo is a 69-year-old female who presents to the office today originally for evaluation of left hip pain since September of this year. Patient does endorse bilateral groin pain. However, most recently the patient has sustained a fall on 01/23/2025 when trying to move a book shelf. She fell directly landing onto the book shelf injuring her lower back and C-spine. At this time, these areas are the most bothersome for her. While in the office today, I discussed with the patient surgical versus conservative treatment options for her hip pain. Surgical treatment options would include total joint arthroplasty. However, the patient reports that she does not wish to move forward with surgical intervention at this time as she has a who is currently undergoing treatment for a left foot/ankle fracture with a recent right BKA amputation. Conservative treatment options would include physical therapy and cortisone injection. Patient is interested in moving forward with cortisone injections at this time. Therefore, an order has been placed for bilateral hip intra-articular cortisone injections to be performed under imaging guidance. Lastly, the patient would like to make an appointment for evaluation of her C- spine and lower back pain as a result of her fall. I have recommended an appointment with Dr. Babin for evaluation and treatment. X-rays of the left hip and pelvis which were obtained while in the office today and were reviewed by me, Ramona Kiser PA-C, revealed osteoarthritis. Orders: Orders XR hip RT min 2V Today M25.559 - Pain in unspecified hip XR hip LT min 2V Today M25.559 - Pain in unspecified hip Coding Level of Care Code New Pt Level 4 (25321) Diagnoses Osteoarthritis, hip, bilateral M16.0
[2025-01-28 14:33] VITALS: BMI 29.4
--- OUTSIDE RECORDS SUMMARY | 2025-01-29 09:04 | XMS_ITS | Clinical Summary ---
Author Organization [facility] Address [address] [place] [address] Phone Care Team Providers Care Home Management Supervisor Name Role Phone Dada Torres MD Primary Care Provider [phone] Allergies Active Allergy Reactions Criticality Noted Date Comments Tetanus Vaccines And Toxoid 07/30/19 25 Arm swelling Medications sacubitriL-vals jacob (Entresto) 24-26 mg per tablet Take 1 tablet by mouth 2 (two) times a day. 180 tablet 1 05/25/19 25 Active aspirin 81 mg EC tablet Take [...] topical gel Apply topically if needed. Active metoprolol succinate (TOPROL-XL) 100 mg 24 hr tablet TAKE 0.5 TABLETS BY MOUTH 1 TIME EACH DAY. 45 tablet 1 01/16/20 25 Active metoprolol succinate (TOPROL-XL) 100 mg 24 hr tablet Take 0.5 tablets (50 mg total) by mouth 1 (one) time each day. 45 tablet 1 07/12/19 25 025 Discontinued Medical History Medical History Date Comments Raynaud's [...] Last Done Comments Breast Cancer Screening 1955 Colorectal Cancer Screening: Colonoscopy 1955 DTaP,Tdap,and Td Vaccines (1 - Tdap) 1972 Zoster Vaccines (1 of 2) 1972 COVID-19 Vaccine (3 - Pfizer risk series) 06/13/2020 05/16/2020, 04/25/2020 Cholesterol Screening (Lipid Panel) 04/07/2023 Falls Risk Assessment 04/07/2023 Hepatitis C [...] Insurance MEDICARE [place]ICA[place] - [place] Care Teams Home Management Supervisor Relationship Specialty Start Date End Date Ddaa Torres MD [address] [place] [address] [address] [facility] [place] [address] PCP - General 01/02/24
== END 2025-01-28 15:14 | disposition home or self-care (01) ==
LOC: HO.HOS 14:07
PROVIDERS: PCP Internal Medicine; Visit Provider Physician Assistant
DX: M16.0 Bilateral primary osteoarthritis of hip (principal)
CPT/HCPCS: 99204

== ENCOUNTER 2025-01-28 14:12 | Outpatient (REF) | payer MEDICARE, MEDICAID, SELFPAY ==
--- NOTE | ~2025-01-28 | XR_ITS ---
EXAMINATION: XR HIP, RIGHT CLINICAL INFORMATION: M25.559 - Pain in unspecified hip COMPARISON: August 03, 2016. TECHNIQUE: AP and oblique views of the right hip. FINDINGS: Sclerosis along the articular surface of the acetabulum and subchondral cyst formation both the acetabular and femoral head. Joint space narrowing at the right coxofemoral joint. No acute cortical disruption or malalignment. No lytic or blastic lesions. Sclerosis and the inferior sacroiliac joint. XR/XR hip RT min 2V IMPRESSION: Osteoarthrosis/osteoarthritis, mild to moderate, right hip. Electronically signed by: Louie Puga MD 01/28/2025 03:48 PM EST
--- NOTE | ~2025-01-28 | XR_ITS ---
EXAMINATION: XR HIP, LEFT CLINICAL INFORMATION: M25.559 - Pain in unspecified hip COMPARISON: August 03, 2016 and September 18, 2024. TECHNIQUE: AP view pelvis. AP and oblique views of the left hip. FINDINGS: Sclerosis along the articular surface of the acetabulum and femoral head with subchondral cyst formation. Joint space narrowing, both coxofemoral joints. No acute cortical disruption or malalignment in either hip. Bony pelvis is intact. No lytic or blastic lesions. Spondylosis L4-5 and L5-S1 no fully included in the [id number]. Mild degenerative changes in the symphysis pubis.. XR/XR hip LT min 2V IMPRESSION: Osteoarthritis/osteoarthrosis both coxofemoral joints, pronounced in the left hip. Electronically signed by: Louie Puga MD 01/28/2025 02:29 PM [facility]
== END 2025-01-28 14:13 | disposition home or self-care (01) ==
LOC: HO.HOSX 14:12
PROVIDERS: Visit Provider Physician Assistant
DX: M16.0 Bilateral primary osteoarthritis of hip (principal); M54.50 Low back pain, unspecified; M54.2 Cervicalgia
CPT/HCPCS: 73502

== ENCOUNTER → 2025-01-28 14:13 | Outpatient (BNV) | payer MEDICARE, MEDICAID, SELFPAY | PROVIDERS: Visit Provider Radiology Diagnostic Radiology | DX: M16.0 Bilateral primary osteoarthritis of hip (principal) | CPT/HCPCS: 73502 ==

== ENCOUNTER 2025-02-11 12:47 | Outpatient (REF) | payer MEDICARE, MEDICAID, SELFPAY ==
--- NOTE | ~2025-02-11 | FL_ITS ---
EXAMINATION: FLUOROSCOPIC GUIDED RIGHT HIP JOINT INJECTION. FLUOROSCOPIC GUIDED LEFT HIP JOINT INJECTION CLINICAL INFORMATION: Pain COMPARISON: X-ray 01/28/2025 TECHNIQUE/FINDINGS: Telephone call discussion with Ramona Kiser , medications for the joint injections was discussed. RIGHT HIP: The procedure, risks, benefits and alternatives were reviewed with the patient and written informed consent was obtained after all questions were answered. A final timeout was performed. The patient was prepped and draped in the usual sterile fashion. Utilizing sterile technique, 2% lidocaine for local anesthesia, and intermittent fluoroscopic guidance, a 22-gauge needle was advanced into the right hip joint .A small amount of iodinated contrast material was injected to confirm needle placement. Subsequently, 1 mL (40 mg) of Depo-Medrol, 3 cc 1% lidocaine, 3 cc 0.25 % Marcaine was injected. The patient was repositioned. Next, left hip joint injection was performed.. LEFT HIP: The patient was prepped and draped in the usual sterile fashion. Utilizing sterile technique, 2% lidocaine for local anesthesia, and intermittent fluoroscopic guidance, a 22-gauge needle was advanced into the left hip joint .A small amount of iodinated contrast material was injected to confirm needle placement. Subsequently, 1 mL (40 mg) of Depo-Medrol, 3 cc 1% lidocaine, 3 cc 0.25 %Marcaine was injected. There were no immediate complications.. FLUOROSCOPY TIME: 18 seconds. Dose Area Product: 31 Gy-cm2 NUMBER OF FLUOROSCOPIC IMAGES : 2 screen captures right hip 2 Screen captures left hip. FL/FL Guided Asp Inj Major Jt BI IMPRESSION: Fluoroscopic-guided injection of the right hip joint without complication. Fluoroscopic guided injection of the left hip joint without complication. Electronically signed by: Salvador Ellis MD 02/11/2025 04:45 PM [facility]
--- OUTSIDE RECORDS SUMMARY | 2025-02-11 14:40 | XMS_ITS | Clinical Summary ---
Author Organization [facility] [employer] Address [address] [facility] [address] Phone Care Team Providers Care Director Of Materials Name Role Phone Dada Torres MD Primary Care Provider [phone] Allergies Active Allergy Reactions Criticality Noted Date [...] Insurance MEDICARE [place]ICA[place] - [place] Care Teams Director Of Materials Relationship Specialty Start Date End Date Dada Torres MD [address] [place] [address] [address] [facility] [place] [address] PCP - General 01/02/24
[2025-02-11] MEDS: Lidocaine HCl 1 % MPF 30 ML VIAL INTRAARTIC (15:19)
[2025-02-11] MEDS: BUPivacaine MPF 0.25 % 30 ML VIAL 13 ML SUBCUT (15:26)
== END 2025-02-11 12:48 | disposition home or self-care (01) ==
LOC: HO.XRAY 12:47
PROVIDERS: PCP Internal Medicine; Visit Provider Physician Assistant
DX: M16.0 Bilateral primary osteoarthritis of hip (principal)
CPT/HCPCS: 20610; 77002; J0665; J1010; J2003; Q9967

== ENCOUNTER → 2025-02-11 12:49 | Outpatient (BNV) | payer MEDICARE, MEDICAID, SELFPAY | PROVIDERS: PCP Internal Medicine; Visit Provider Radiology Diagnostic Ultrasound | DX: M16.0 Bilateral primary osteoarthritis of hip (principal) | CPT/HCPCS: 20610; 77002 ==

== ENCOUNTER 2025-03-11 10:26 | Outpatient (AMB) | payer MEDICARE, MEDICAID, SELFPAY ==
[2025-03-11 11:02] VITALS: BP 138/88; PULSE 72; O2SAT 99; BMI 29.4
--- NOTE | 2025-03-11 11:02 | AM.OFFVISMDC ---
Intake Vital Signs 03/11/25 11:02 Height 5 ft 6 in Weight 182 lb BMI 29.4 BP 138/88 Blood Pressure Location Lt brachial Position Sitting Pulse 72 Pulse Source Pulse Oximeter Pulse Oximetry (%) 99 Oxygen Delivery Method Room Air Intake Visit Reasons: V G0439 Allergies tetanus toxoid, adsorbed (Tetanus Toxoid,Adsorbed) Allergy (Intermediate, Verified 03/11/25 11:03) FLU LIKE SYMPTOMS Tetanus Allergy (Unknown, Verified 03/11/25 11:03) cold duloxetine (Cymbalta) Adverse Reaction (Unknown, Verified 03/11/25 11:03) not sure Medication List - Last Reconciled 03/11/25 by Dada Franco Po, alprazolam 0.5 mg PO TID 90 days aspirin 81 mg PO DAILY atorvastatin 20 mg PO BEDTIME bupropion HCl XL (Wellbutrin XL) 150 mg PO QAM cholecalciferol (vitamin D3) 50 mcg PO DAILY 90 days cyanocobalamin (vitamin B-12) (Vitamin B-12) 1,000 mcg PO DAILY 90 days diclofenac sodium 1% (Arthritis Pain (diclofenac)) 4 grams topical QID hydralazine 50 mg PO TID loratadine 10 mg PO DAILY metoprolol succinate ER 50 mg PO DAILY 90 days seujbsyh-ulg-wott-FA-vit K-lut 8 mg iron-400 mcg-50 mcg (Centrum Silver Women) 1 tab PO DAILY multivitamin 1 tab PO DAILY sacubitril-valsartan 24-26 mg (Entresto) 1 tab PO BID tramadol 50 mg PO TID PRN 90 days HPI SWV G0439 HPI Details [facility] of [facility], [facility], Orthopedics [facility], 01/13/2025- fell -moved furniture, - went [place] [facility]- was helping . HPI Comments History of Present Illness Details History of Present Illness The patient is a 69-year-old overweight female presenting for an annual well visit. Her past medical history is significant for hypertension, generalized anxiety disorder, coronary atherosclerosis, ischemic cardiomyopathy, hypercholesterolemia, and breast cancer diagnosed in 2002. She was last seen in October 2024. The patient has a history of hip osteoarthritis and recently followed up with orthopedics for a fluoroscopic injection in February 2025, which has provided some relief. In January, she experienced a fall at home while moving furniture but did not sustain any fractures. Blood work from September 2024 revealed several abnormalities, including macrocytic anemia with an MCV of 104, low vitamin B12 of 200, and low vitamin D. Her creatinine was elevated at 1.53, a significant increase from her baseline of 0.83 in 2022. Additionally, she had a mildly elevated liver function test, triglycerides of 184, and an LDL of 100. Recommended follow-up blood work was not completed. For health maintenance, her mammogram and bone density scans are up to date, with the latter being normal. She previously declined a colonoscopy, and an order for Cologuard ; she now declines Cologuard testing due to prior difficulties with the test. 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 She has been taking alprazolam as needed for anxiety. Health Maintenance The patient's mammogram and bone density scans are up to date. She declined Cologuard testing. She received her flu shot during the visit and was advised to get the shingles vaccine. A referral for a hearing test will be placed. Fasting blood work has been ordered to be completed. Social History - Alcohol Use: Reports drinking one can of beer occasionally. - Tobacco Use: Denies ever smoking. - Illicit Drug Use: Denies any use of illicit drugs. - Living Situation: She is the primary caregiver for her , who has an cvehk-dpw-qnjg amputation and other health issues. - Social Support/Stressors: Reports significant stress and anxiety related to caregiving for her and her son's recent diagnosis of a heart problem. - Nutrition: Reports drinking soda and was advised to stop. - Functional Status: Able to perform daily activities but moves slower due to arthritis; her home is equipped with assistive devices. Results - Labs from September 2024: - Macrocytic anemia noted with MCV of 104. - Vitamin B12: Low at 200. - Creatinine: High at 1.53, an increase from 0.83 in 2022. - Liver Function Test: Mildly elevated with one number at 35. - Lipid Panel: LDL cholesterol is 100 and triglycerides are 184. - Vitamin D: Low. - Other labs: Sodium, potassium, folic acid, and thyroid levels were within normal limits. - Bone Density Scan: Normal. - Mammogram: Up to date. [facility] Medical History (Updated 03/11/25 @ 11:52 by Dada Torres MD) Age-related osteoporosis without current pathological fracture History of heart attack Hypercholesterolemia Pure hypercholesterolemia Ischemic cardiomyopathy Colonoscopy refused Raynauds disease Rosacea Hypertension Obesity (BMI 30-39.9) Varicose veins of anus or rectum Fibromyalgia History of breast cancer Osteoarthritis Surgical History Hx of breast augmentation History of tubal ligation History of cone biopsy of uterine cervix History of mastectomy Family History Father Angina pectoris Past heart attack Mother Diabetes Stroke CVD (cardiovascular disease) Social History Housing: Apartment Alcohol intake: current Alcohol intake frequency: holidays/special occasions only Comment: once a month beer Patient Tobacco Use Status: Never used Tobacco e-Cigarette/Vaping Use: Never Used Second Hand Smoke Exposure: No service: No Current occupational status: disabled Cognitive needs: No Hearing needs: No Vision needs: Yes Questionnaire Medicare Wellness Checkup [age] What gender do you identify with?: female During the past 4 weeks, how much have you been bothered by emotional problems such as feeling anxious, depressed, irritable, sad or downhearted, and blue?: moderately During the past 4 weeks, has your physical & emotional health limited your social activities with family, friends, neighbors, or groups?: quite a bit During the past 4 weeks, how much bodily pain have you generally had?: severe pain During the past 4 weeks, was someone available to help you if you needed & wanted help?: yes, a little During the past 4 weeks, what was the hardest physical activity you could do for at least 2 minutes?: moderate Can you get to places out of walking distance without help? (For eg., can you travel alone on buses, taxis or drive your car?): Yes Can you go shopping for groceries or clothes without someone's help?: No Can you prepare your own meals?: Yes Can you do your housework without help?: Yes Because of any health problems, do you need the help of another person with your personal care needs such as eating, bathing, dressing or getting around the house?: No Can you handle your own money without help?: Yes During the past 4 weeks, how would you rate your health in general?: fair During the past 4 weeks how have things been going for you?: good & bad parts about equal Are you having difficulties driving your car?: not applicable, I don't use a car Do you always fasten your seat belt when you are in a car?: yes, usually During past 4 weeks, have you been bothered by the following: never: Falling or dizzy when standing up, Trouble eating well?, Teeth or denture problems? and Problems using the telephone?, seldom: Sexual problems? and often: Tiredness or fatigue? Have you fallen 2 or more times in the past year?: Yes Are you afraid of falling?: Yes Are you a smoker?: no During the past 4 weeks, how many drinks of wine, beer, or other alcoholic beverages did you have?: 1 drink or less per week Do you exercise for about 20 minutes 3 or more times a week?: yes, some of the time Have you been given information to help with the following?: yes: Hazards in your house that might hurt you? and no: Keeping track of your medications? How often do you have trouble taking medicines the way you have been told to take them?: I always take medicine as prescribed How confident are you that you can control & manage most of your health problems?: very confident What is your race?: White PHQ-9 Over the last 2 weeks, how often have you been bothered by any of the following problems? 1. Little interest or pleasure in doing things: several days 2. Feeling down, depressed, or hopeless: not at all 3. Trouble falling or staying asleep, or sleeping too much: several days 4. Feeling tired or having little energy: more than half the days 5. Poor appetite or overeating: several days 6. Feeling bad about yourself - or that you are a failure or have let yourself or your family down: not at all 7. Trouble concentrating on things, such as reading the newspaper or watching television: not at all 8. Moving or speaking so slowly that other people could have noticed. Or the opposite - being so fidgety or restless that you have been moving around a lot more than usual: not at all 9. Thoughts that you would be better off or of hurting yourself in some way: not at all Total score: 5 Depression Screening Interpretation: Positive Depression Screening Done: Yes [id number] - PHQ-9 Billing: Yes Source: Developed by Drs. Neil Banda, Gloria Yuen, Andrae Farfan and colleagues, with an educational dudley from [employer]. Fall Risk Assessment Fall Risk Assessment Fall risk assessment: 1 Fall in past year Review of Systems Narrative Review of Systems - Psychiatric: Reports significant anxiety related to family stressors. Denies depression or suicidal ideation. - Neurological: Denies dizziness or syncope. - HEENT: Reports possible hearing loss; vision is stable with difficulty only on reading. Denies dysphagia, pain, or irritation in eyes. - Cardiovascular: Denies chest pain, palpitations, or heartburn. - Respiratory: Denies waking up with shortness of breath. - Gastrointestinal: Denies nausea and vomiting. Reports normal bowel movements. - Genitourinary: Reports nocturia, waking 3-4 times per night to urinate. - General: Denies fever. Const Denies poor appetite and Denies weakness Eyes Denies no additional complaints ENT Reports Normal hearing present, Denies dizziness, Denies nasal congestion, Denies tinnitus and Denies sore throat Card Denies chest pain, Denies syncope, Denies rapid heart rate and Denies dyspnea Resp Denies cough and Denies dyspnea GI Denies change in stool character, Reports constipation, Denies diarrhea, Denies nausea and Denies vomiting Denies urinary frequency, Denies difficulty voiding and Denies dysuria Neuro Reports Normal hearing present, Denies confusion, Denies dizziness, Denies syncope and Denies weakness Psych Denies confusion Physical Exam Exam Exam: Physical Exam General: Cooperative, healthy appearing, comfortable, no acute distress and well developed Orientation: Patient oriented x3 Limitations: No limitations Head: Normal to inspection Ears: Hearing might be losing a bit, need for hearing test Nose: Normal external nose present Face and sinus: Normal facial exam Eyes: Appearance normal, both eyes and all related structures; small spots on left conjunctiva, no pain or irritation Neck: Normal visual inspection and Yes full ROM Respiratory: Normal respiratory effort and able to speak in complete sentences. Clear to auscultation bilaterally Cardiovascular: Regular rate and rhythm. Normal S1 and S2 GI: Normal to inspection. Soft to palpation and nontender Skin: No rashes or lesions noted Neuro: Patient oriented x3 Extremities: Normal to inspection; injections in hip helped, bone on bone near under, in hips Vital Signs: Last Vital Signs Pulse 72 03/11/25 11:02 BP 138/88 03/11/25 11:02 Pulse Ox 99 03/11/25 11:02 Oxygen Delivery Method Room Air 03/11/25 11:02 BMI result Body Mass Index 29.4 Const General: No confusion Orientation/consciousness: No confusion HEENT Head: Yes normocephalic Ears: external ears normal and TM's normal bilaterally Face and sinus: Yes normal facial exam Mouth: moist mucous membranes Throat: Yes tonsils normal Eyes Conjunctivae: conjunctivae normal Pupils: Equal, round and reactive pupils present and Pupil accommodation reflex normal Direct Ophthalmoscopy: normal light reflex Neck Neck: No lymphadenopathy Thyroid: Thyroid normal Chest Chest palpation & inspection: normal inspection of the chest Resp Effort & Inspection: normal respiratory effort and no audible wheezes Auscultation: clear to auscultation bilaterally, no crackles, no wheezes and lung sounds not diminished Cardio Rate: regular rate Rhythm: regular rhythm Peripheral pulses: radial pulses present and dorsalis pedis present GI Palpation (GI): no masses Auscultation: normal bowel sounds and normoactive bowel sounds Rectal Exam - Female: deferred Skin General skin exam: no rashes or lesions noted Rashes: no rashes Neuro General: No confusion Cranial nerves: Yes Equal, round and reactive pupils present and Yes Normal hearing present Cognition (Neuro): normal cognition Gait exam (Neuro): Normal gait present Motor exam (neuro): 5/5 motor strength present throughout Deep tendon reflexes (DTR's): Right brachioradialis reflex intensity grade: 2+, Left brachioradialis reflex intensity grade: 2+, Right patellar reflex intensity grade: 2+ and Left patellar reflex intensity grade: 2+ Extrem General: No edema Office Procedures Flu Questionnaire Does the patient have a severe egg allergy?: No Does the patient have severe life threatening allergies?: No Does the patient have a fever or illness today?: No Has the patient ever had Guillain-Prospect Syndrome?: No Has the patient ever had any past reaction to a flu shot?: No Immunizations Fluarix 6510-3214 (PF) 45 mcg (15 mcg x 3)/0.5 mL IM syringe Performing Provider: Dada Torres MD Performing Location: [facility] Administered by: Disha Edwards CMA on 03/11/25 11:20 Dose Route Admin Location Dispensed Lot Number Expiration Date NDC Biomedical Engineering Technician 0.5 mL IM Left Deltoid 0.5 mL [id number] 09/09/25 [id number] [employer] VIS Given Date VIS Provided VIS Publication Date 03/11/25 Single Vaccine 24 Eligibility Eligibility Date Funding Source Not [facility] Eligible 03/11/25 Private Assessment & Plan Assessment & Plan (1) Medicare annual wellness visit, subsequent: Code(s): Z00.00 - Encounter for general adult medical examination without abnormal findings Plan: Patient is advised to eat healthy, keep well hydrated, keep active and have adequate sleep. (2) Osteoarthritis, hip, bilateral: Code(s): M16.0 - Bilateral primary osteoarthritis of hip Plan: Patient follows up with orthopedics with recent fluoroscopic injections (3) History of breast cancer: Comment: Two thousand three Code(s): Z85.3 - Personal history of malignant neoplasm of breast Plan: Patient is up-to-date with mammogram (4) Colonoscopy refused: Code(s): Z53.20 - Procedure and treatment not carried out because of patient's decision for unspecified reasons Plan: Discussed about getting Cologuard testing (5) Overweight (BMI 25.0-29.9): Code(s): E66.3 - Overweight Plan: Diet and exercise (6) Coronary atherosclerosis: Comment: S/P anterior STEMI - Tx with PCI and ROBERTA to LAD on 02/24/2023; TTE 02/24/23 showed LVEF 35% with anterior hypokinesis Code(s): I25.10 - Atherosclerotic heart disease of [place] coronary artery without angina pectoris Qualifiers: Associated angina: without angina Coronary Disease-Associated Artery/Lesion type: [place] artery Lummi vs. transplanted heart: [place] heart Qualified Code(s): I25.10 - Atherosclerotic heart disease of [place] coronary artery without angina pectoris Plan: Control the cholesterol, weight, blood pressure, patient is advised to get blood work done (7) Hypertension: Code(s): I10 - Essential (primary) hypertension Qualifiers: Hypertension type: essential hypertension Qualified Code(s): I10 - Essential (primary) hypertension Plan: Continue with blood pressure medication. Decrease salt intake and exercise on Entresto 1 tab twice a day metoprolol 50 mg once a day hydralazine 50 mg t.i.d. (8) Pure hypercholesterolemia: Code(s): E78.00 - Pure hypercholesterolemia, unspecified Plan: Avoid fried foods, chicken skin, eggs, butter margarine, pastries and meat. Be it pork or beef they have a lot of cholesterol on atorvastatin 20 mg at bedtime (9) Generalized anxiety disorder: Comment: Service NET., 03/01/2024 declined counseling Code(s): F41.1 - Generalized anxiety disorder Plan: Continue with alprazolam as needed (10) Hearing deficit: Code(s): H91.90 - Unspecified hearing loss, unspecified ear Plan Plan Patient was informed and verbally consented to the use of an ambient scribe for clinic note documentation during this visit. 1. Generalized Anxiety Disorder The patient reports significant situational anxiety related to family health issues. She will continue taking alprazolam as needed and agreed to try a new daily medication for anxiety stabilization, which has been prescribed. 2. Acute Kidney Injury The patient's creatinine was significantly elevated at 1.53 on labs from September 2024. Repeat blood work, including a CMP, has been ordered to re-evaluate kidney function. She was advised to maintain adequate hydration during the daytime but to limit fluids 2-3 hours before bed to reduce nocturia. 3. Hyperlipidemia, Mixed The patient's cholesterol is suboptimally controlled with an LDL of 100 and triglycerides of 184. She will continue atorvastatin 20 mg at bedtime. A fasting lipid panel has been ordered, and her cholesterol medication will be adjusted if her levels remain elevated. 4. Vitamin B12 Deficiency And Macrocytosis The patient has macrocytosis and a low vitamin B12 level of 200. She will continue her vitamin B12 supplement. Repeat CBC and B12 levels will be checked with the ordered blood work. 5. Hypertension The patient will continue her current antihypertensive regimen, including Entresto, metoprolol 50 mg, and hydralazine 50 mg TID. 6. Osteoarthritis Of Hip The patient is following up with orthopedics and noted improvement after a recent fluoroscopic hip injection. She will continue to use tramadol as needed for pain. 7. Vitamin D Deficiency The patient has a history of low vitamin D and will continue taking her supplement of 2000 units daily. Discussion Notes I reviewed the patient's recent history, including a fall in January, and her ongoing management for hip osteoarthritis with orthopedics. We discussed the abnormal lab results from September 2024 at length. I expressed my concern regarding the significant increase in her creatinine to 1.53 and explained the importance of repeating blood work to assess her kidney function. I explained that her LDL cholesterol of 100 is above the goal of less than 70 for patients with atherosclerosis and that her medication may need adjustment based on repeat testing. We also discussed her macrocytosis and confirmed she is deficient in vitamin B12, requiring supplementation. We discussed her significant anxiety related to her roles as a caregiver. The patient expressed a desire not to feel zoned out but was agreeable to trying a new daily, non-sedating medication to help stabilize her mood, for which I sent a prescription. Health maintenance was reviewed, including her vaccine status and screening tests. She declined Cologuard testing. I advised her to get the shingles vaccine and placed an order for a hearing test. I counseled her to limit fluid intake before bedtime to reduce nocturia. Patient Instructions - Please get the blood work done that we ordered for you. It is important to not eat or drink anything (except water) for 8-12 hours before the test. - We have sent a new prescription for anxiety to your pharmacy. Please start taking this as directed. You may continue to use your alprazolam as needed. - Continue taking all your current medications for your heart, blood pressure, and cholesterol. - Continue taking your Vitamin D and Vitamin B12 supplements. You only need to take one multivitamin (Centrum Silver). - To help you sleep better, try to avoid drinking any liquids for 2 to 3 hours before you go to bed. - Please go to your pharmacy to get the shingles vaccine. - We will arrange a referral for you to have a hearing test. - Please follow up with us to review your blood test results. Orders: Orders Influenza [id number] Immunization Today Z23 - Encounter for immunization Hepatitis B,C Profile Today E78.00 - Pure hypercholesterolemia, unspecified, R79.89 - Other specified abnormal findings of blood chemistry Vitamin D 25-OH Total Today E78.00 - Pure hypercholesterolemia, unspecified Referrals Speech and Hearing Referral H91.90 - Unspecified hearing loss, unspecified ear Medications: New bupropion HCl XL (Wellbutrin XL) 150 mg PO QAM 30 tabs 2RF F41.1 - Generalized anxiety disorder Quality Reporting (2019) Fall Risk Screening ([facility] 139) Fall risk assessment: 1 Fall in past year Depression/Bipolar (159/160/161/177) PHQ-9: Total score: 5 Coding Level of Care Code Medicare Subsequent (G0439) Diagnoses Medicare annual wellness visit, subsequent Z00.00 Osteoarthritis, hip, bilateral M16.0 History of breast cancer Z85.3 Colonoscopy refused Z53.20 Overweight (BMI 25.0-29.9) E66.3 Atherosclerosis of [place] coronary artery of [place] heart without angina pectoris I25.10 Associated angina: without angina Coronary Disease-Associated Artery/Lesion type: [place] artery Lummi vs. transplanted heart: [place] heart Essential hypertension I10 Hypertension type: essential hypertension Pure hypercholesterolemia E78.00 Generalized anxiety disorder F41.1 Hearing deficit H91.90 Additional Codes PHQ-9 - 22948 - PHQ-9 Billing: Yes ([id number])
--- OUTSIDE RECORDS SUMMARY | 2025-03-11 13:58 | XMS_ITS | Clinical Summary ---
Author Organization 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 180 tablet 1 5 Active aspirin 81 mg [...] 1 TIME EACH DAY. 45 tablet 1 5 Active Medical History Medical History Date Comments [...] on file Sexual Orientation Not on file Last Filed Vital Signs Vital Sign Reading [...] Screening 1955 Colorectal Cancer Screening: Colonoscopy 1955 Drug Screen 1955 Non-Opioid Controlled Substance Agreement 1955 DTaP,Tdap,and Td Vaccines (1 - Tdap) [...] Insurance MEDICARE MEDICAID - [place] Care Teams Pellet Mill Operator Relationship Specialty Start Date End Date Dada Torres MD [address] [place] [address] [address] [facility] [place] [address] PCP - General 01/02/24
== END 2025-03-11 12:03 | disposition home or self-care (01) ==
LOC: HO.HMCH 10:27
PROVIDERS: PCP Internal Medicine; Visit Provider Internal Medicine
DX: Z00.00 Encounter for general adult medical examination without abnormal findings (principal); M16.0 Bilateral primary osteoarthritis of hip; Z85.3 Personal history of malignant neoplasm of breast; Z53.20 Procedure and treatment not carried out because of patient's decision for unspecified reasons; E66.3 Overweight; I25.10 Atherosclerotic heart disease of native coronary artery without angina pectoris; I10 Essential (primary) hypertension; E78.00 Pure hypercholesterolemia, unspecified; F41.1 Generalized anxiety disorder; H91.90 Unspecified hearing loss, unspecified ear; Z23 Encounter for immunization

== ENCOUNTER → 2025-03-11 10:26 | Outpatient (BNVA) | payer MEDICARE, MEDICAID, SELFPAY | PROVIDERS: PCP Internal Medicine; Visit Provider Internal Medicine | DX: Z13.31 Encounter for screening for depression (principal); Z23 Encounter for immunization | CPT/HCPCS: 90471; 90656; 96127 ==